=== PATIENT | male | born 1990 | race Caucasian/White ===

== ENCOUNTER 2019-11-02 18:40 | Emergency (ER) | payer OTHER ==
[2019-11-02 18:54] VITALS: TEMP 98.6; BMI 57.7
[2019-11-02] MEDS ORDERED: ALBUTEROL SO4 2.5/IPRATROPIUM 0.5 INH SOL 3 ML VIAL.NEB. NEB ONE ×3 (20:45→23:09)
[2019-11-02] MEDS ORDERED: DEXAMETHASONE LIQUID 0.5 MG/5 ML PO ONE (20:46)
[2019-11-02] MEDS ORDERED: LOSARTAN POTASSIUM 50 MG TABLET (FP) PO ONE (20:47)
[2019-11-02] MEDS ORDERED: DEXAMETHASONE SOD PHOSPHATE 10 MG/1 ML VIAL ONE (21:51)
[2019-11-02] MEDS ORDERED: LOSARTAN POTASSIUM 50 MG TABLET (FP) ONE (22:05)
--- NOTE | 2019-11-02 23:02 | PDOC ---
History of Present Illness - General Chief Complaint: Shortness of Breath Stated Complaint: FLU SYMPTOMS Time Seen by Provider: 11/02/19 20:36 History Source: Patient Exam Limitations: No Limitations - History of Present Illness Initial Comments: 11/02/19 23:00 29-year-old male with history of hypertension, asthma presents complaining of 5 weeks of dry cough with subjective fever intermittent shortness of breath. Completed antibiotics 7 days ago however does not recall name of antibiotic. Had loose stools yesterday. Missed losartan dose today. Denies chest pain, nausea, vomiting, recent travel, recent sick contacts, rash, urinary complaints or any other symptoms. ROS: GENERAL/CONSTITUTIONAL: Subjective fever, denies chills, weakness, dizziness HEAD, EYES, EARS, NOSE AND THROAT: No changes in vision, No ear pain or discharge, No sore throat CARDIOVASCULAR: No chest pain RESPIRATORY: Cough, intermittent shortness of breath GASTROINTESTINAL: No pain, nausea, vomiting, diarrhea or constipation GENITOURINARY: No dysuria MUSCULOSKELETAL: No neck or back pain SKIN: No rash NEUROLOGIC: No headache, vertigo, loss of consciousness, or loss of sensation PE: GENERAL: well-appearing, NAD, obese HEAD: NCAT EYES: Pupils equal, round and reactive to light, sclera anicteric, conjunctiva clear ENT: Normal bilateral ear canals, normal bilateral TMs, pharynx: no erythema, no exudate, uvula midline NECK: supple, no lymphadenopathy CHEST: nontender RESP: clear, wheezing throughout lung arizmendi CARDIO: rrr, no m/g/r ABD: +BS, soft, nontender, non distended BACK: no midline spinal ttp, no CVAT EXTREMITIES: Normal range of motion, no edema NEUROLOGICAL: Normal speech, normal gait SKIN: Warm, Dry 11/02/19 23:18 Is this a multiple visit Asthma Patient?: No Past History - Past Medical History Allergies/Adverse Reactions: Allergies Allergy/AdvReac Type Severity Reaction Status Date / Time No Known Allergies Allergy Verified 11/02/19 18:50 Home Medications: Ambulatory Orders Losartan Potassium 100 mg PO DAILY 11/02/19 Azithromycin [Zithromax Tri-Dung (3 DAYS) -] 500 mg PO DAILY #3 tablet 11/03/19 Prednisone [Prednisone 50 MG TABLETS] 50 mg PO ONCE 3 Days #3 tablet 11/03/19 COPD: No - Psycho Social/Smoking Cessation Hx Smoking History: Never smoked *Physical Exam - Vital Signs Last Vital Signs Temp Pulse Resp BP Pulse Ox 98.6 F 108 H 22 H 170/111 H 98 11/02/19 18:51 11/02/19 18:51 11/02/19 18:51 11/02/19 18:51 11/02/19 18:51 ED Treatment Course - RADIOLOGY Radiology Studies Ordered: Category Date Time Status CHEST PA & LAT [RAD] Stat Radiology 11/02/19 20:44 Taken - Medications Given in the ED: ED Medications Discontinued Medications Generic Name Dose Route Start Last Admin Trade Name Khanh PRN Reason Stop Dose Admin Albuterol/Ipratropium 1 amp 11/02/19 20:45 11/02/19 21:55 Duoneb - NEB 11/02/19 20:46 1 amp ONCE ONE Administration Dexamethasone 10 mg 11/02/19 20:46 11/02/19 21:55 Decadron Liquid - PO 11/02/19 20:47 10 ml ONCE ONE Administration Losartan Potassium 100 mg 11/02/19 20:47 11/02/19 22:07 Cozaar - PO 11/02/19 20:48 100 mg ONCE ONE Administration Medical Decision Making - Medical Decision Making 11/02/19 23:20 29-year-old male with history of asthma and hypertension complaining of 5 weeks of dry cough, worsening at night. Duo nebs Decadron Chest x-ray Losartan 100 mg x 1 dose Reassess 11/03/19 01:01 Patient feels better after nebs, Decadron and acetaminophen Clear lungs on auscultation repeat BP 157/91, 02 sat 97% Given history of asthma and continuous cough will treat with azithromycin 500 mg for 3 days and prednisone 50 mg daily for 3 days Follow-up with your doctor within 1 to 2 days Return to ED if chest pain, shortness of breath or any worsening symptom 11/03/19 01:04 Discharge - Discharge Information Problems reviewed: Yes Clinical Impression/Diagnosis: Cough Condition: Stable Disposition: HOME - Admission No - Additional Discharge Information Prescriptions: Azithromycin [Zithromax Tri-Dung (3 DAYS) -] 500 mg PO DAILY #3 tablet Prednisone [Prednisone 50 MG TABLETS] 50 mg PO ONCE 3 Days #3 tablet - Follow up/Referral Referrals: Genaro Marte MD [Primary Care Provider] - - Patient Discharge Instructions Additional Instructions: Take azithromycin and prednisone as directed Return to ED if chest pain, shortness of breath or any worsening symptom Follow-up with your doctor within 1 to 2 days - Post Discharge Activity
[2019-11-02] MEDS ORDERED: ACETAMINOPHEN 500 MG TABLET (FP) PO ONE (23:15)
[2019-11-03] MEDS ORDERED: ACETAMINOPHEN 325 MG TABLET (FP) ONE (00:05)
[2019-11-03] MEDS ORDERED: ALBUTEROL SO4 2.5/IPRATROPIUM 0.5 INH SOL 3 ML VIAL.NEB. NEB ONE (00:05)
[2019-11-03 04:29] VITALS: BP 153/94; PULSE 94
--- NOTE | 2019-11-03 15:10 | EKG ---
Test Reason : Blood Pressure : / mmHG Vent. Rate : 103 BPM Atrial Rate : 103 BPM P-R Int : 140 ms QRS Dur : 100 ms QT Int : 340 ms P-R-T Axes : 050 055 034 degrees QTc Int : 445 ms SINUS TACHYCARDIA POSSIBLE LEFT ATRIAL ENLARGEMENT NONSPECIFIC INTRAVENTRICULAR CONDUCTION DEFECT NO PREVIOUS ECGS AVAILABLE Confirmed by LY QUIROZ MD ([id number]) on 11/03/2019 3:10:32 PM Referred By: Confirmed By:LY QUIROZ MD
== END 2019-11-03 02:07 | disposition home or self-care (01) ==
LOC: JER 18:40
PROC: 3E0F7GC Introduction of Other Therapeutic Substance into Respiratory Tract, Via Natural or Artificial Opening (ICD-10-PCS; principal; 2019-11-02)
PROC: 3E0F7GC Introduction of Other Therapeutic Substance into Respiratory Tract, Via Natural or Artificial Opening (ICD-10-PCS; 2019-11-02)
DX: J45.909 Unspecified asthma, uncomplicated (principal); R05 Cough; I10 Essential (primary) hypertension
CPT/HCPCS: 71046-TC-FY; 93005; 93010; 99284-25

== ENCOUNTER 2020-01-09 12:28 | Inpatient (IN) | payer OTHER ==
[2020-01-09 12:37] VITALS: BMI 58.7
[2020-01-09] MEDS ORDERED: ACETAMINOPHEN 1000 MG/100 ML VIAL (NON FORMULARY) IVPB ONE (12:37)
--- NOTE | 2020-01-09 12:38 | PDOC ---
History of Present Illness - General Chief Complaint: Shortness of Breath Stated Complaint: DIFFICULTY BREATHING Time Seen by Provider: 01/09/20 12:34 - History of Present Illness Initial Comments: HPI: 01/09/20 12:37 29 yo M PMH HTN, asthma, morbid obesity, presenting with respiratory distress. Patient seen by Dr. Genaro Marte, Dr. Connors called ER to inform us that the patient was en route. Patient is known COVID-19 positive. Patient states that his breathing has gotten acutely worse over the past day, and also complains of worsening bilateral leg swelling. Patient did take 500mg acetaminophen about 3 hours before ER arrival. Endorses chest pain 2/2 coughing, SOB, [place]. [place]: [phone] ROS: GENERAL/CONSTITUTIONAL: endorses fever and chills. Denies generalized weakness, loss of appetite, weight change HEAD, EYES, EARS, NOSE AND THROAT: denies rhinorrhea, nasal congestion, throat pain, throat swelling NEUROLOGIC: denies headache, focal weakness, dizziness, seizure, mental status changes CARDIOVASCULAR: endorses chest pain 2/2 cough. Denies syncope, palpitations, irregular heart rate, lightheadedness RESPIRATORY: endorses cough, shortness of breath, and dyspnea with exertion. Denies stridor, hemoptysis GASTROINTESTINAL: denies abdominal pain, nausea, vomiting, diarrhea, constipation GENITOURINARY: denies dysuria, frequency, urgency, hesitancy, hematuria, flank pain MUSCULOSKELETAL: endorses myalgia. Denies arthralgia, joint swelling, back pain, neck pain SKIN: denies rash, itching, pallor HEMATOLOGIC/IMMUNOLOGIC: denies easy bleeding, easy bruising, lymphadenopathy, frequent infections ENDOCRINE: denies unexplained weight gain, unexplained weight loss, heat intolerance, cold intolerance PSYCHIATRIC: denies anxiety, depression, suicidal or homicidal ideation, hallucinations PE: Gen: sweaty, appears uncomfortable Neuro: AAOX4, CN II-XII grossly intact HEENT: atraumatic, normocephalic, dry mucous membranes Neck: trachea midline, supple CV: tachycardic to 130s, regular rhythm, no murmurs, rubs, or gallops Pulm: mild diffuse expiratory wheezes, satting 96% on 15L NRB Abd: soft, obese, non-distended, non-tender MSK: full ROM, intact pulses Extr: no edema, no deformities Skin: warm, dry MDM: Concern for worsening COVID. - COVID order set - EKG, CXR - Ofirmev - admit 01/09/20 13:13 CXR with significant developing bilateral infiltrates. Will give ceftriaxone and azithromycin, patient will be admitted for suspected COVID-19 and hypoxia. 01/09/20 14:14 ABG wnl. 01/09/20 14:50 D-dimer 33k, will give 180 mg Lovenox. Trop 0.48, likely 2/2 COVID-19. Inflammatory markers elevated. Patient admitted for COVID-19. Past History - Past Medical History Allergies/Adverse Reactions: Allergies Allergy/AdvReac Type Severity Reaction Status Date / Time No Known Allergies Allergy Verified 12/28/19 10:59 Home Medications: Ambulatory Orders Albuterol Sulfate Inhaler - [Ventolin HFA Inhaler -] 2 inh PO Q4H PRN #1 inh 11/03/16 Albuterol 2.5/Ipratropium 0.5 [Duoneb -] 1 amp NEB Q6H PRN #1 vial 12/16/19 Albuterol Sulfate Inhaler - [Ventolin HFA Inhaler -] 2 puff IH Q4H PRN #1 inhaler 01/02/20 Zinc Sulfate [Orazinc -] 220 mg PO DAILY #30 capsule 01/02/20 Asthma: Yes COPD: (sleep apnea) Diabetes: No (pre-diabetic) HTN: Yes Psychiatric Problems: Yes (Anxiety, Depression) - Psycho Social/Smoking Cessation Hx Smoking History: Never smoked Have you smoked in the past 12 months: No Information on smoking cessation initiated: No Hx Alcohol Use: No Drug/Substance Use Hx: No Substance Use Type: None Hx Substance Use Treatment: No *Physical Exam - Vital Signs Last Vital Signs Temp Pulse Resp BP Pulse Ox 99 F 126 H 36 H 131/77 80 L 01/09/20 12:34 01/09/20 12:34 01/09/20 12:34 01/09/20 12:34 01/09/20 12:34 ED Treatment Course - LABORATORY CBC & Chemistry Diagram: 01/10/20 07:10 01/10/20 07:10 - RADIOLOGY Radiology Studies Ordered: Category Date Time Status CHEST X-RAY PORTABLE* [RAD] Stat Radiology 01/09/20 12:35 Ordered Discharge - Discharge Information Problems reviewed: Yes Clinical Impression/Diagnosis: Suspected COVID-19 virus infection, Hypoxia - Follow up/Referral - Patient Discharge Instructions - Post Discharge Activity
[2020-01-09] MEDS ORDERED: methylPREDNISolone NA SUCC 125 MG/2 ML VIAL IVPB ONE (12:39)
--- NOTE | 2020-01-09 12:51 | PDOC ---
Attending Attestation - Resident Resident Name: José Manuel Chen - ED Attending Attestation I have performed the following: I have examined & evaluated the patient, The case was reviewed & discussed with the resident, I agree w/resident's findings & plan, Exceptions are as noted - HPI HPI: 01/09/20 12:40 29M with h/o HTN, asthma, morbid obesity, recent admission for asthma flare 2/2 confirmed COVID infection, presenting to ED with worsening SOB. Pt reports that over the past few days, he has been getting more short of breath. He used his albuterol MDI with no relief. Pt also notes that he has been having worsening swelling of both lower extremities. This was reported on his prior admission but acutely worsened last night. Pt denies F/C. - Physicial Exam PE: 01/09/20 12:45 GENERAL: Awake, alert, and fully oriented, in moderate respiratory distress. HEAD: No signs of trauma EYES: PERRLA, EOMI, sclera anicteric, conjunctiva clear ENT: Auricles normal inspection, hearing grossly normal, nares patent, oropharynx clear without exudates. Moist mucosa NECK: Nontender, no stepoffs, Normal ROM, supple, no lymphadenopathy, JVD, or masses LUNGS: + expiratory wheezing HEART: Regular rate and rhythm, normal S1 and S2, no murmurs, rubs or gallops ABDOMEN: Soft, nontender, normoactive bowel sounds. No guarding, no rebound. No masses EXTREMITIES: Normal range of motion, no edema. No clubbing or cyanosis. No cords, erythema, or tenderness NEUROLOGICAL: Cranial nerves II through XII intact. 5/5 strength and sensation in all extremities, Normal speech, normal gait, normal cerebellar function SKIN: Warm, Dry, normal turgor, no rashes or lesions noted. - Critical Care Time Total Critical Care Time: 60 Critical Care Statement: The care of this patient involved high complexity decision making to prevent further life threatening deterioration of the patient's condition and/or to evaluate & treat vital organ system(s) failure or risk of failure. - Medical Decision Making 01/09/20 12:51 29 M with confirmed COVID, presenting with worsening SOB. Pt hypoxic to 70s on RA, 90s on NRB. Likely asthma flare vs COVID PNA. - Labs - CXR - ALbuterol MDI, steroids 01/09/20 13:06 CXR with bilateral patchy infiltrates, suspect COVID PNA. Discharge - Discharge Information Problems reviewed: Yes Clinical Impression/Diagnosis: Suspected COVID-19 virus infection, Hypoxia - Follow up/Referral - Patient Discharge Instructions - Post Discharge Activity
[2020-01-09] MEDS ORDERED: ACETAMINOPHEN INJECTION 100 ML IVPB ONE (13:19)
[2020-01-09] MEDS ORDERED: methylPREDNISolone NA SUCC 125 MG/2 ML VIAL ONE (13:19)
[2020-01-09 13:24] LABS: BASO % 0.4 % (0-2.0); EOS % 1.2 % (0-4.5); HEMATOCRIT 38.2 % (35.4-49); HEMOGLOBIN 12.7 GM/dL (11.7-16.9); LYMPH % 12.6 % (8-40); MCHC 33.1 g/dl (32.0-35.9); MEAN CELL VOLUME 81.6 fl (80-96); MEAN PLT VOLUME 8.4 fl (7.5-11.1); MONO % 7.7 % (3.8-10.2); NEUT % 78.1 % (42.8-82.8); PLATELET COUNT 267 K/MM3 (134-434); RBC 4.68 M/mm3 (4.00-5.60); RDW 16.9 % (11.9-15.9); WHITE BLOOD COUNT 8.7 K/mm3 (4.0-10.0)
[2020-01-09 13:34] LABS: INR 1.35 (0.83-1.09)
[2020-01-09 13:37] LABS: ACTIVATED PTT 28.1 SECONDS (25.2-36.5)
[2020-01-09 13:43] LABS: ARTERIAL BLD GAS O2 SATURATION 96.2 % (95-98); ARTERIAL BLOOD GAS BASE EXCESS 1.9 mmol/L (-2-2); ARTERIAL BLOOD GAS PCO2 37.1 mmHg (35-45); ARTERIAL BLOOD GAS PO2 90.3 mmHg (80-100); ARTERIAL BLOOD GAS pH 7.45 (7.35-7.45)
[2020-01-09 14:19] LABS: ALBUMIN 2.5 g/dl (3.4-5.0); BILIRUBIN,DIRECT 0.2 mg/dL (0.0-0.2); BILIRUBIN,TOTAL 0.5 mg/dL (0.2-1); BLOOD UREA NITROGEN 9.4 mg/dL (7-18); CALCIUM 7.7 mg/dL (8.5-10.1); CREATININE 0.9 mg/dL (0.55-1.3); POTASSIUM 4.5 mmol/L (3.5-5.1); TOT PROT 6.9 g/dl (6.4-8.2)
[2020-01-09] MEDS ORDERED: ENOXAPARIN NA (PORCINE) 120 MG/0.8 ML DISP.SYRIN SQ SCH (15:00)
--- NOTE | 2020-01-09 15:17 | EKG ---
Test Reason : Blood Pressure : / mmHG Vent. Rate : 121 BPM Atrial Rate : 121 BPM P-R Int : 136 ms QRS Dur : 094 ms QT Int : 332 ms P-R-T Axes : 055 055 030 degrees QTc Int : 471 ms SINUS TACHYCARDIA POSSIBLE LEFT ATRIAL ENLARGEMENT BORDERLINE ECG WHEN COMPARED WITH ECG OF 31-DEC-2019 14:50, NO SIGNIFICANT CHANGE WAS FOUND Confirmed by MD DAVIS PENG ([id number]) on 01/09/2020 3:16:58 PM Referred By: Confirmed By:TATE DAVIS MD
[2020-01-09] MEDS ORDERED: ENOXAPARIN NA (PORCINE) 100 MG/1 ML DISP.SYRIN SQ ONE (15:36)
[2020-01-09] MEDS ORDERED: ENOXAPARIN NA (PORCINE) 80 MG/0.8 ML DISP.SYRIN SQ ONE (15:36)
[2020-01-09] MEDS ORDERED: CEFTRIAXONE 1 GM in DEXTROSE 5%-WATER 100 ML IVPB ONE (19:25)
[2020-01-09] MEDS ORDERED: HYDROXYCHLOROQUINE SO4 200 MG TABLET (FP) PO ONE ×2 (19:30→20:04)
[2020-01-09] MEDS ORDERED: AZITHROMYCIN IVPB 500 MG/250 ML BAG IVPB ONE ×2 (19:45→20:05)
[2020-01-09] MEDS ORDERED: CEFTRIAXONE 1 GM/50 ML BAG ONE (20:04)
[2020-01-09] MEDS ORDERED: ASCORBIC ACID 500 MG TABLET (FP) ONE (22:31)
[2020-01-09] MEDS ORDERED: ZINC SULFATE 220 MG CAPSULE (FP) ONE (22:31)
[2020-01-09] MEDS: ASCORBIC ACID 1,000 MG TABLET PO SCH (22:56)
[2020-01-09] MEDS: ZINC SULFATE 220 MG CAPSULE (FP) PO SCH (22:56)
--- NOTE | 2020-01-10 00:53 | HP ---
Admitting History and Physical - Smoking History Smoking history: Never smoked Have you smoked in the past 12 months: No - Alcohol/Substance Use Hx Alcohol Use: No Home Medications - Allergies Allergies/Adverse Reactions: Allergies Allergy/AdvReac Type Severity Reaction Status Date / Time No Known Allergies Allergy Verified 12/28/19 10:59 - Home Medications Home Medications: Ambulatory Orders Albuterol Sulfate Inhaler - [Ventolin HFA Inhaler -] 2 inh PO Q4H PRN #1 inh 11/03/16 Albuterol 2.5/Ipratropium 0.5 [Duoneb -] 1 amp NEB Q6H PRN #1 vial 12/16/19 Albuterol Sulfate Inhaler - [Ventolin HFA Inhaler -] 2 puff IH Q4H PRN #1 inha ler 01/02/20 Zinc Sulfate [Orazinc -] 220 mg PO DAILY #30 capsule 01/02/20 Physical Examination Vital Signs: Vital Signs Temperature 97.4 F L 01/09/20 21:16 Pulse Rate 111 H 01/09/20 23:25 Respiratory Rate 25 H 01/09/20 23:25 Blood Pressure 148/78 01/09/20 23:25 O2 Sat by Pulse Oximetry (%) 96 01/09/20 23:25 Labs: CBC, BMP 01/09/20 13:00 01/09/20 13:00
[2020-01-10 07:33] LABS: BASO % 0.5 % (0-2.0); HEMATOCRIT 38.8 % (35.4-49); LYMPH % 10.9 % (8-40); MCH 27.3 pg (25.7-33.7); MCHC 33.4 g/dl (32.0-35.9); MEAN CELL VOLUME 81.9 fl (80-96); MEAN PLT VOLUME 8.5 fl (7.5-11.1); MONO % 5.4 % (3.8-10.2); NEUT % 83.2 % (42.8-82.8); PLATELET COUNT 282 K/MM3 (134-434); RBC 4.74 M/mm3 (4.00-5.60); RDW 16.2 % (11.9-15.9); WHITE BLOOD COUNT 7.1 K/mm3 (4.0-10.0)
--- NOTE | 2020-01-10 07:59 | CON.CARD ---
Consult Consult Specialty:: Cardiology - History of Present Illness History of Present Illness: 29M with h/o HTN, asthma, morbid obesity, recent admission for asthma flare 2/2 confirmed COVID infection, presenting to ED with worsening SOB. Pt reports that over the past few days, he has been getting more short of breath. He used his albuterol MDI with no relief. Pt also notes that he has been having worsening swelling of both lower extremities. This was reported on his prior admission but acutely worsened last night. Pt denies F/C. - Past Medical History Cardio/Vascular: Yes: HTN - Alcohol/Substance Use Hx Alcohol Use: No - Smoking History Smoking history: Never smoked Have you smoked in the past 12 months: No Home Medications - Allergies Allergies/Adverse Reactions: Allergies Allergy/AdvReac Type Severity Reaction Status Date / Time No Known Allergies Allergy Verified 12/28/19 10:59 - Home Medications Home Medications: Ambulatory Orders Albuterol Sulfate Inhaler - [Ventolin HFA Inhaler -] 2 inh PO Q4H PRN #1 inh 11/03/16 Albuterol 2.5/Ipratropium 0.5 [Duoneb -] 1 amp NEB Q6H PRN #1 vial 12/16/19 Albuterol Sulfate Inhaler - [Ventolin HFA Inhaler -] 2 puff IH Q4H PRN #1 inhaler 01/02/20 Zinc Sulfate [Orazinc -] 220 mg PO DAILY #30 capsule 01/02/20 Review of Systems - Review of Systems Constitutional: reports: No Symptoms Eyes: reports: No Symptoms HENT: reports: No Symptoms Neck: reports: No Symptoms Cardiovascular: reports: Edema Respiratory: reports: SOB, SOB on Exertion Gastrointestinal: reports: No Symptoms Genitourinary: reports: No Symptoms Breasts: reports: No Symptoms Reported Musculoskeletal: reports: No Symptoms Integumentary: reports: No Symptoms Neurological: reports: No Symptoms Endocrine: reports: No Symptoms Hematology/Lymphatic: reports: No Symptoms Psychiatric: reports: No Symptoms Vital Signs: Vital Signs Temperature 97.4 F L 01/09/20 21:16 Pulse Rate 90 01/10/20 06:00 Respiratory Rate 23 H 01/10/20 06:00 Blood Pressure 129/77 01/10/20 06:00 O2 Sat by Pulse Oximetry (%) 96 01/10/20 07:30 Constitutional: Yes: Well Nourished, No Distress, Calm Eyes: Yes: WNL, Conjunctiva Clear, EOM Intact HENT: Yes: WNL, Atraumatic, Normocephalic Neck: Yes: WNL, Supple, Trachea Midline Respiratory: Yes: WNL, Regular, CTA Bilaterally Gastrointestinal: Yes: WNL, Normal Bowel Sounds Renal/: Yes: WNL Cardiovascular: Yes: WNL, Regular Rate and Rhythm Musculoskeletal: Yes: WNL Extremities: Yes: WNL Integumentary: Yes: WNL Neurological: Yes: WNL, Alert, Oriented ...Motor Strength: WNL Psychiatric: Yes: WNL, Alert, Oriented - Other Data Labs, Other Data: INR, PTT INR 1.35 (0.83-1.09) H 01/09/20 13:00 Troponin, BNP 01/09/20 01/09/20 01/09/20 13:00 13:00 23:24 Troponin I 0.48 H 1.75 H* B-Natriuretic Peptide 113.5 Troponin, BNP 01/09/20 01/09/20 01/09/20 13:00 13:00 23:24 Troponin I 0.48 H 1.75 H* B-Natriuretic Peptide 113.5 Imaging - Results Chest X-ray: Image Reviewed (b infiltrates) EKG: Image Reviewed (s tachy rep abn NSR wnl QTC 469) Problem List - Problems (1) Asthma attack Code(s): J45.901 - UNSPECIFIED ASTHMA WITH (ACUTE) EXACERBATION (2) Asthma exacerbation Code(s): J45.901 - UNSPECIFIED ASTHMA WITH (ACUTE) EXACERBATION (3) Bronchitis Code(s): J40 - BRONCHITIS, NOT SPECIFIED ACUTE OR CHRONIC (4) COVID-19 Code(s): U07.1 - COVID POSITIVE (5) Cellulitis Code(s): L03.90 - CELLULITIS, UNSPECIFIED (6) Cough Code(s): R05 - COUGH (7) Diabetes Code(s): E11.9 - TYPE 2 DIABETES MELLITUS WITHOUT COMPLICATIONS (8) Fever Code(s): R50.9 - FEVER, UNSPECIFIED (9) HTN (hypertension) Code(s): I10 - ESSENTIAL (PRIMARY) HYPERTENSION (10) Morbid obesity Code(s): E66.01 - MORBID (SEVERE) OBESITY DUE TO EXCESS CALORIES (11) Morbid obesity Code(s): E66.01 - MORBID (SEVERE) OBESITY DUE TO EXCESS CALORIES (12) Otitis externa Code(s): H60.90 - UNSPECIFIED OTITIS EXTERNA, UNSPECIFIED EAR Qualifiers: Otitis externa type: unspecified type Chronicity: acute Laterality: right Qualified Code(s): H60.501 - Unspecified acute noninfective otitis externa, right ear (13) Pilonidal abscess Code(s): L05.01 - PILONIDAL CYST WITH ABSCESS (14) Suspected COVID-19 virus infection Code(s): R68.89 - OTHER GENERAL SYMPTOMS AND SIGNS (15) Swollen leg Code(s): M79.89 - OTHER SPECIFIED SOFT TISSUE DISORDERS (16) Tachycardia Code(s): R00.0 - TACHYCARDIA, UNSPECIFIED (17) Tooth pain Code(s): K08.8 - OTHER SPECIFIED DISORDERS OF TEETH AND SUPPOR * DO NOT USE * (18) URI (upper respiratory infection) Code(s): J06.9 - ACUTE UPPER RESPIRATORY INFECTION, UNSPECIFIED Qualifiers: URI type: unspecified viral URI Qualified Code(s): J06.9 - Acute upper respiratory infection, unspecified (19) Varicose veins Code(s): I86.8 - VARICOSE VEINS OF OTHER SPECIFIED SITES Assessment/Plan HTN, asthma, morbid obesity, recent admission for asthma flare 2/2 confirmed COVID infection, presenting to ED with worsening SOB. positive TNIs Plan; Agree with ASA Lovonox AC Azithromycin/Cefriaxone Cardiac w/u when stable and COVID pnemonitis resolves
[2020-01-10 08:24] LABS: ALBUMIN 2.6 g/dl (3.4-5.0); BILIRUBIN,TOTAL 0.6 mg/dL (0.2-1); BLOOD UREA NITROGEN 14.1 mg/dL (7-18); CALCIUM 8.7 mg/dL (8.5-10.1); CREATININE 0.8 mg/dL (0.55-1.3); POTASSIUM 4.7 mmol/L (3.5-5.1); TOT PROT 7.2 g/dl (6.4-8.2)
[2020-01-10] MEDS ORDERED: ENOXAPARIN NA (PORCINE) 100 MG/1 ML DISP.SYRIN SQ ONE ×2 (09:01→21:25)
[2020-01-10] MEDS ORDERED: ASPIRIN 81 MG CHEWABLE TABLETS ONE (09:01)
[2020-01-10] MEDS ORDERED: ZINC SULFATE 220 MG CAPSULE (FP) ONE ×2 (09:01→21:25)
[2020-01-10] MEDS ORDERED: ENOXAPARIN NA (PORCINE) 80 MG/0.8 ML DISP.SYRIN SQ ONE ×2 (09:02→21:25)
[2020-01-10] MEDS: ASPIRIN COATED 81 MG TABLET.EC PO SCH (09:15)
[2020-01-10] MEDS: ZINC SULFATE 220 MG CAPSULE (FP) PO SCH ×2 (09:15→21:42)
[2020-01-10] MEDS: ASCORBIC ACID 1,000 MG TABLET PO SCH ×2 (09:15→21:42)
[2020-01-10] MEDS: ENOXAPARIN NA (PORCINE) 60 MG/0.6 ML DISP.SYRIN SQ SCH ×2 (09:16→21:42)
--- NOTE | 2020-01-10 09:27 | EKG ---
Test Reason : Blood Pressure : / mmHG Vent. Rate : 099 BPM Atrial Rate : 099 BPM P-R Int : 152 ms QRS Dur : 104 ms QT Int : 374 ms P-R-T Axes : 047 036 018 degrees QTc Int : 479 ms NORMAL SINUS RHYTHM NORMAL ECG WHEN COMPARED WITH ECG OF 09-JAN-2020 12:47, NO SIGNIFICANT CHANGE WAS FOUND Confirmed by MD DAVIS PENG ([id number]) on 01/10/2020 9:27:30 AM Referred By: Confirmed By:TATE DAVIS MD
--- NOTE | 2020-01-10 09:27 | EKG ---
Test Reason : Blood Pressure : / mmHG Vent. Rate : 095 BPM Atrial Rate : 095 BPM P-R Int : 146 ms QRS Dur : 098 ms QT Int : 374 ms P-R-T Axes : 053 038 027 degrees QTc Int : 469 ms NORMAL SINUS RHYTHM NORMAL ECG WHEN COMPARED WITH ECG OF 09-JAN-2020 21:28, NO SIGNIFICANT CHANGE WAS FOUND Confirmed by MD DAVIS PENG ([id number]) on 01/10/2020 9:27:12 AM Referred By: Confirmed By:TATE DAVIS MD
--- NOTE | 2020-01-10 12:12 | CON.ID ---
Consult Consult Specialty:: infectious diseases - Alcohol/Substance Use Hx Alcohol Use: No - Smoking History Smoking history: Never smoked Have you smoked in the past 12 months: No Home Medications - Allergies Allergies/Adverse Reactions: Allergies Allergy/AdvReac Type Severity Reaction Status Date / Time No Known Allergies Allergy Verified 12/28/19 10:59 - Home Medications Home Medications: Ambulatory Orders RX: Albuterol Sulfate Inhaler - [Ventolin HFA Inhaler -] 2 inh PO Q4H PRN #1 inh 11/03/16 RX: Albuterol 2.5/Ipratropium 0.5 [Duoneb -] 1 amp NEB Q6H PRN #1 vial 12/16/19 RX: Albuterol Sulfate Inhaler - [Ventolin HFA Inhaler -] 2 puff IH Q4H PRN #1 inhaler 01/02/20 RX: Zinc Sulfate [Orazinc -] 220 mg PO DAILY #30 capsule 01/02/20 Physical Exam Vital Signs: Vital Signs Temperature 97.4 F L 01/09/20 21:16 Pulse Rate 85 01/10/20 11:48 Respiratory Rate 22 H 01/10/20 11:48 Blood Pressure 124/83 01/10/20 11:48 O2 Sat by Pulse Oximetry (%) 99 01/10/20 11:48 Labs: CBC, BMP 01/10/20 07:10 01/10/20 07:10
[2020-01-10] MEDS ORDERED: AZITHROMYCIN IVPB 500 MG/250 ML BAG IVPB ONE (12:54)
[2020-01-10] MEDS ORDERED: CEFTRIAXONE 1 GM/50 ML BAG ONE (12:54)
[2020-01-10] MEDS: CEFTRIAXONE 1 GM in DEXTROSE 5%-WATER - 50 ML IVPB SCH (13:01)
[2020-01-10] MEDS: AZITHROMYCIN IVPB 500 MG/250 ML BAG IVPB SCH (13:29)
[2020-01-10] MEDS ORDERED: ASCORBIC ACID 500 MG TABLET (FP) ONE (21:24)
[2020-01-11 08:31] LABS: BASO % 0.2 % (0-2.0); EOS % 0.1 % (0-4.5); HEMATOCRIT 36.1 % (35.4-49); HEMOGLOBIN 11.8 GM/dL (11.7-16.9); LYMPH % 14.9 % (8-40); MCH 26.9 pg (25.7-33.7); MCHC 32.6 g/dl (32.0-35.9); MEAN CELL VOLUME 82.4 fl (80-96); MEAN PLT VOLUME 8.8 fl (7.5-11.1); MONO % 6.1 % (3.8-10.2); NEUT % 78.7 % (42.8-82.8); PLATELET COUNT 333 K/MM3 (134-434); RBC 4.39 M/mm3 (4.00-5.60); RDW 16.3 % (11.9-15.9)
[2020-01-11 09:20] LABS: ALBUMIN 2.3 g/dl (3.4-5.0); BILIRUBIN,TOTAL 0.3 mg/dL (0.2-1); BLOOD UREA NITROGEN 20.4 mg/dL (7-18); CALCIUM 8.2 mg/dL (8.5-10.1); CREATININE 0.8 mg/dL (0.55-1.3)
[2020-01-11] MEDS ORDERED: PT OWN MED DRAWER 7, Y5N ONE (09:21)
[2020-01-11] MEDS ORDERED: cefTRIAXone SODIUM 1 GM VIAL ONE (09:21)
[2020-01-11] MEDS ORDERED: DEXTROSE 5%-WATER - 50 ML IVPB ONE (09:22)
[2020-01-11] MEDS: ALBUTEROL SO4 HFA INHALER IH PRN (09:48)
[2020-01-11] MEDS: ZINC SULFATE 220 MG CAPSULE (FP) PO SCH ×2 (09:48→21:18)
[2020-01-11] MEDS: ASCORBIC ACID 1,000 MG TABLET PO SCH ×2 (09:48→21:18)
[2020-01-11] MEDS: CEFTRIAXONE 1 GM in DEXTROSE 5%-WATER - 50 ML IVPB SCH (09:48)
[2020-01-11] MEDS: ENOXAPARIN NA (PORCINE) 60 MG/0.6 ML DISP.SYRIN SQ SCH ×2 (09:48→21:18)
[2020-01-11] MEDS: ASPIRIN COATED 81 MG TABLET.EC PO SCH (09:48)
[2020-01-11 10:45] LABS: ANISOCYTOSIS 0; MACROCYTOSIS 0; PLATELET ESTIMATE NORMAL
--- NOTE | 2020-01-11 10:50 | PN ---
Progress Note, Physician History of Present Illness: still requiring face mask says breathing is hard - Current Medication List Current Medications: Active Medications Albuterol Sulfate (Ventolin Hfa Inhaler -) 2 puff IH Q4H PRN PRN Reason: SHORT OF BREATH/WHEEZING Last Admin: 01/11/20 09:48 Dose: 2 puff Documented by: Ascorbic Acid (Vitamin C) 1,000 mg PO BID [facility] Last Admin: 01/11/20 09:48 Dose: 1,000 mg Documented by: Aspirin (Ecotrin -) 81 mg PO DAILY [facility] Last Admin: 01/11/20 09:48 Dose: 81 mg Documented by: Enoxaparin Sodium (Lovenox -) 180 mg SQ BID [facility] Last Admin: 01/11/20 09:48 Dose: 180 mg Documented by: Ceftriaxone Sodium 1 gm/ (Dextrose) 50 mls @ 100 mls/hr IVPB DAILY [facility]; Protocol Last Admin: 01/11/20 09:48 Dose: 100 mls/hr Documented by: Zinc Sulfate (Orazinc -) 220 mg PO BID [facility] Last Admin: 01/11/20 09:48 Dose: 220 mg Documented by: - Objective Vital Signs: Vital Signs Temperature 97.8 F 01/11/20 08:48 Pulse Rate 92 H 01/11/20 08:48 Respiratory Rate 18 01/11/20 08:48 Blood Pressure 140/70 01/11/20 08:48 O2 Sat by Pulse Oximetry (%) 100 01/11/20 03:58 Constitutional: Yes: Calm, Moderate Distress, Obese Cardiovascular: Yes: S1, S2 Respiratory: Yes: Poor Air Entry, Other (on nrb) Gastrointestinal: Yes: Normal Bowel Sounds, Soft Musculoskeletal: Yes: WNL Extremities: Yes: WNL Neurological: Yes: Alert, Oriented Psychiatric: Yes: Alert, Oriented Labs: CBC, BMP 01/11/20 06:28 01/11/20 06:28 INR, PTT INR 1.35 (0.83-1.09) H 01/09/20 13:00 Assessment/Plan Problem List - Problems (1) Asthma attack Code(s): J45.901 - UNSPECIFIED ASTHMA WITH (ACUTE) EXACERBATION (2) Asthma exacerbation Code(s): J45.901 - UNSPECIFIED ASTHMA WITH (ACUTE) EXACERBATION (3) Bronchitis Code(s): J40 - BRONCHITIS, NOT SPECIFIED ACUTE OR CHRONIC (4) COVID-19 Code(s): U07.1 - COVID POSITIVE (6) Cough Code(s): R05 - COUGH (7) Diabetes Code(s): E11.9 - TYPE 2 DIABETES MELLITUS WITHOUT COMPLICATIONS (8) Fever Code(s): R50.9 - FEVER, UNSPECIFIED (9) HTN (hypertension) Code(s): I10 - ESSENTIAL (PRIMARY) HYPERTENSION (10) Morbid obesity Code(s): E66.01 - MORBID (SEVERE) OBESITY DUE TO EXCESS CALORIES (11) Morbid obesity Code(s): E66.01 - MORBID (SEVERE) OBESITY DUE TO EXCESS CALORIES (13) Pilonidal abscess Code(s): L05.01 - PILONIDAL CYST WITH ABSCESS plan consider steroids will stop plaquenil and zithro continue ceftriaxone might need cpap pul to see rest as per the team
[2020-01-11] MEDS: HYDROXYCHLOROQUINE SO4 200 MG TABLET (FP) PO SCH (10:57)
[2020-01-11] MEDS: AZITHROMYCIN IVPB 500 MG/250 ML BAG IVPB SCH (10:57)
--- NOTE | 2020-01-11 13:11 | CON.PULM ---
Consult Consult Specialty:: PULMONARY Referred by:: ALLEN Reason for Consultation:: SOB - History of Present Illness Chief Complaint: SOB History of Present Illness: 29 yo M HTN, asthma, morbid obesity, presenting with respiratory distress. Patient was seen by Dr. Genaro Marte. Patient is known COVID-19 positive. Patient states that his breathing has gotten acutely worse over the past day, and also complains of worsening bilateral leg swelling. 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 No: AFIB Pulmonary: Yes: Sleep Apnea Gastrointestinal: No: Ascites Hepatobiliary: No: Cirrhosis Renal/: No: Renal Failure Heme/Onc: No: Anemia Psych: No: Addictions - Alcohol/Substance Use Hx Alcohol Use: No History of Substance Use: reports: None - Smoking History Smoking history: Never smoked Have you smoked in the past 12 months: No - Social History ADL: Independent History of Recent Travel: No Home Medications - Allergies Allergies/Adverse Reactions: Allergies Allergy/AdvReac Type Severity Reaction Status Date / Time No Known Allergies Allergy Verified 12/28/19 10:59 - Home Medications Home Medications: Ambulatory Orders Albuterol Sulfate Inhaler - [Ventolin HFA Inhaler -] 2 inh PO Q4H PRN #1 inh 11/03/16 Albuterol 2.5/Ipratropium 0.5 [Duoneb -] 1 amp NEB Q6H PRN #1 vial 12/16/19 Albuterol Sulfate Inhaler - [Ventolin HFA Inhaler -] 2 puff IH Q4H PRN #1 inhaler 01/02/20 Zinc Sulfate [Orazinc -] 220 mg PO DAILY #30 capsule 01/02/20 Family Medical History Family History: Unremarkable Review of Systems - Review of Systems Constitutional: denies: Fever Eyes: denies: Blurred Vision HENT: denies: Ear Discharge Neck: denies: Lumps Cardiovascular: reports: Edema, Shortness of Breath Respiratory: reports: Exercise Intolerance, SOB, SOB on Exertion. denies: Cough, Hemoptysis, Wheezing Gastrointestinal: denies: Abdominal Pain Genitourinary: denies: Burning Physical Exam Vital Sings: Vital Signs Temperature 97.8 F 01/11/20 08:48 Pulse Rate 92 H 01/11/20 08:48 Respiratory Rate 18 01/11/20 08:48 Blood Pressure 140/70 01/11/20 08:48 O2 Sat by Pulse Oximetry (%) 100 01/11/20 10:00 Constitutional: Yes: Calm Eyes: Yes: EOM Intact HENT: Yes: Normocephalic Neck: Yes: Trachea Midline Cardiovascular: Yes: Regular Rate and Rhythm Respiratory: Yes: Diminished Gastrointestinal: Yes: Abdomen, Obese Edema: LLE: 1+, RLE: 1+ Neurological: Yes: Alert Labs: CBC, BMP 01/11/20 06:28 01/11/20 06:28 ABG Results ABG pH 7.45 (7.35-7.45) 01/09/20 13:00 ABG pCO2 at Pt Temp 37.1 mmHg (35-45) 01/09/20 13:00 ABG pO2 at Pt Temp 90.3 mmHg (80-100) 01/09/20 13:00 ABG HCO3 25.2 mmol/L (22-27) 01/09/20 13:00 ABG O2 Sat (Measured) 96.2 % (95-98) 01/09/20 13:00 ABG O2 Content 24.6 % vol 01/09/20 13:00 ABG Base Excess 1.9 mmol/L (-2-2) 01/09/20 13:00 Imaging - Results Chest X-ray: Report Reviewed, Image Reviewed Ultrasound: Report Reviewed EKG: Report Reviewed, Image Reviewed Problem List - Problems (1) Sleep apnea Code(s): G47.30 - SLEEP APNEA, UNSPECIFIED (2) Hypoxia Code(s): R09.02 - HYPOXEMIA (3) Suspected COVID-19 virus infection Code(s): R68.89 - OTHER GENERAL SYMPTOMS AND SIGNS (4) Asthma exacerbation Code(s): J45.901 - UNSPECIFIED ASTHMA WITH (ACUTE) EXACERBATION (5) Diabetes Code(s): E11.9 - TYPE 2 DIABETES MELLITUS WITHOUT COMPLICATIONS (6) HTN (hypertension) Code(s): I10 - ESSENTIAL (PRIMARY) HYPERTENSION (7) Morbid obesity Code(s): E66.01 - MORBID (SEVERE) OBESITY DUE TO EXCESS CALORIES Assessment/Plan DISCHARGED ON THE December/RETURNS ON THE WITH SOB AFEBRILE/100 SPO2 ON NRB WEIGHS 398 LBS/STATES HE USED TO HAVE SLEEP APNEA? COMPLETED TREATMENT FOR HIS COVID POSITIVE PNEUMONIA 10 DAYS AGO. AGREE WITH EMPIRIC ANTIBIOTICS/O2 SUPPLEMENTATION CONSIDER PAP HS/PRN WILL NEED PSG OUTPATIENT WILL FOLLOW Magalie ORTIZ MD
[2020-01-11] MEDS: ACETAMINOPHEN 325 MG TABLET (FP) PO PRN (13:58)
--- NOTE | 2020-01-11 15:49 | PN ---
Progress Note, Physician History of Present Illness: 29M with h/o HTN, asthma, morbid obesity (weighed over 400 lbs; lost 200 lbs in a year while eating "baby food" and anticipating gastric bypass surgery, which did not occur; became depressed, and regained weight to present 398 lbs);depression; recent admission for asthma flareup 2/2, confirmed COVID infection, presenting to ED with worsening SOB. Pt reports that over the past few days, he has been getting more short of breath. He used his albuterol MDI with no relief. Pt also notes that he has been having worsening swelling of both lower extremities. This was reported on his prior admission but acutely worsened last night. Pt denies F/C. - Current Medication List Current Medications: Active Medications Acetaminophen (Tylenol -) 650 mg PO Q6H PRN PRN Reason: FEVER Albuterol Sulfate (Ventolin Hfa Inhaler -) 2 puff IH Q4H PRN PRN Reason: SHORT OF BREATH/WHEEZING Last Admin: 01/11/20 09:48 Dose: 2 puff Documented by: Ascorbic Acid (Vitamin C) 1,000 mg PO BID [facility] Last Admin: 01/11/20 09:48 Dose: 1,000 mg Documented by: Aspirin (Ecotrin -) 81 mg PO DAILY [facility] Last Admin: 01/11/20 09:48 Dose: 81 mg Documented by: Enoxaparin Sodium (Lovenox -) 180 mg SQ BID [facility] Last Admin: 01/11/20 09:48 Dose: 180 mg Documented by: Ceftriaxone Sodium 1 gm/ (Dextrose) 50 mls @ 100 mls/hr IVPB DAILY [facility]; Protocol Last Admin: 01/11/20 09:48 Dose: 100 mls/hr Documented by: Zinc Sulfate (Orazinc -) 220 mg PO BID [facility] Last Admin: 01/11/20 09:48 Dose: 220 mg Documented by: - Objective Vital Signs: Vital Signs Temperature 97.9 F 01/11/20 12:00 Pulse Rate 89 01/11/20 12:00 Respiratory Rate 18 01/11/20 12:00 Blood Pressure 134/64 01/11/20 12:00 O2 Sat by Pulse Oximetry (%) 100 01/11/20 10:00 Constitutional: Yes: Anxious, Obese Eyes: Yes: WNL HENT: Yes: WNL Neck: Yes: WNL Cardiovascular: Yes: S1, S2 Respiratory: Yes: Diminished, SOB, Tachypnea Gastrointestinal: Yes: Abdomen, Obese ...Rectal Exam: Yes: Deferred Genitourinary: No: Anuria Musculoskeletal: Yes: Muscle Weakness Extremities: Yes: Cool Edema: No Peripheral Pulses WNL: Yes Integumentary: Yes: WNL Neurological: Yes: WNL Psychiatric: Yes: Other Labs: CBC, BMP 01/11/20 06:28 01/11/20 06:28 INR, PTT INR 1.35 (0.83-1.09) H 01/09/20 13:00 Abnormal Lab Results 01/13/20 01/13/20 01/13/20 06:20 06:20 06:20 RDW 16.1 H Monocytes % (Manual) 0 L D Metamyelocytes 3 H D D-Dimer Anion Gap 6 L Calcium 8.4 L Ferritin 718.9 H AST 63 H ALT 87 H C-Reactive Protein 5.9 H Total Protein 6.0 L Albumin 2.4 L 01/13/20 06:20 RDW Monocytes % (Manual) Metamyelocytes D-Dimer 4631 H Anion Gap Calcium Ferritin AST ALT C-Reactive Protein Total Protein Albumin - ....Imaging Chest X-ray: Image Reviewed EKG: Image Reviewed Assessment/Plan HTN, asthma, morbid obesity, recent admission for asthma flare 2/2 confirmed COVID infection, presenting to ED with worsening SOB. positive TNIs Plan; Agree with ASA Lovonox AC Azithromycin/Cefriaxone Cardiac w/u (ECHO; stress MIBI) when stable and COVID pnemonitis resolves start statin (elevated lipid profile). F/u BP serially. Avoid beta blockers (hx asthma); caution with ACEI or ARB (elevated potassium); consider amlodipine.
--- NOTE | 2020-01-11 23:32 | PN ---
Progress Note, Physician - Current Medication List Current Medications: Active Medications Acetaminophen (Tylenol -) 650 mg PO Q6H PRN PRN Reason: FEVER Last Admin: 01/11/20 13:58 Dose: 650 mg Documented by: Albuterol Sulfate (Ventolin Hfa Inhaler -) 2 puff IH Q4H PRN PRN Reason: SHORT OF BREATH/WHEEZING Last Admin: 01/11/20 09:48 Dose: 2 puff Documented by: Ascorbic Acid (Vitamin C) 1,000 mg PO BID [facility] Last Admin: 01/11/20 21:18 Dose: 1,000 mg Documented by: Aspirin (Ecotrin -) 81 mg PO DAILY [facility] Last Admin: 01/11/20 09:48 Dose: 81 mg Documented by: Enoxaparin Sodium (Lovenox -) 180 mg SQ BID [facility] Last Admin: 01/11/20 21:18 Dose: 180 mg Documented by: Ceftriaxone Sodium 1 gm/ (Dextrose) 50 mls @ 100 mls/hr IVPB DAILY [facility]; Protocol Last Admin: 01/11/20 09:48 Dose: 100 mls/hr Documented by: Zinc Sulfate (Orazinc -) 220 mg PO BID [facility] Last Admin: 01/11/20 21:18 Dose: 220 mg Documented by: - Objective Vital Signs: Vital Signs Temperature 97.7 F 01/11/20 18:00 Pulse Rate 91 H 01/11/20 18:00 Respiratory Rate 18 01/11/20 18:00 Blood Pressure 135/77 01/11/20 18:00 O2 Sat by Pulse Oximetry (%) 100 01/11/20 10:00 Labs: CBC, BMP 01/11/20 06:28 01/11/20 06:28 INR, PTT INR 1.35 (0.83-1.09) H 01/09/20 13:00
[2020-01-12] MEDS ORDERED: DEXTROSE 5%-WATER - 50 ML IVPB ONE ×2 (00:17→08:48)
[2020-01-12] MEDS ORDERED: cefTRIAXone SODIUM 1 GM VIAL ONE ×2 (00:17→08:48)
[2020-01-12] MEDS: CEFTRIAXONE 1 GM in DEXTROSE 5%-WATER - 50 ML IVPB SCH ×2 (01:15→09:22)
[2020-01-12] MEDS: ACETAMINOPHEN 325 MG TABLET (FP) PO PRN (03:29)
[2020-01-12] MEDS: ZINC SULFATE 220 MG CAPSULE (FP) PO SCH ×2 (09:22→21:19)
[2020-01-12] MEDS: ASPIRIN COATED 81 MG TABLET.EC PO SCH (09:22)
[2020-01-12] MEDS: ASCORBIC ACID 1,000 MG TABLET PO SCH ×2 (09:22→21:19)
[2020-01-12] MEDS: ENOXAPARIN NA (PORCINE) 60 MG/0.6 ML DISP.SYRIN SQ SCH ×2 (09:22→21:18)
--- NOTE | 2020-01-12 10:15 | PN ---
Progress Note, Physician History of Present Illness: improving was sating well on non rebreather now switched to nasal canula - Current Medication List Current Medications: Active Medications Acetaminophen (Tylenol -) 650 mg PO Q6H PRN PRN Reason: FEVER Last Admin: 01/12/20 03:29 Dose: 650 mg Documented by: Albuterol Sulfate (Ventolin Hfa Inhaler -) 2 puff IH Q4H PRN PRN Reason: SHORT OF BREATH/WHEEZING Last Admin: 01/11/20 09:48 Dose: 2 puff Documented by: Ascorbic Acid (Vitamin C) 1,000 mg PO BID [facility] Last Admin: 01/12/20 09:22 Dose: 1,000 mg Documented by: Aspirin (Ecotrin -) 81 mg PO DAILY [facility] Last Admin: 01/12/20 09:22 Dose: 81 mg Documented by: Enoxaparin Sodium (Lovenox -) 180 mg SQ BID [facility] Last Admin: 01/12/20 09:22 Dose: 180 mg Documented by: Ceftriaxone Sodium 1 gm/ (Dextrose) 50 mls @ 100 mls/hr IVPB DAILY [facility]; Protocol Last Admin: 01/12/20 09:22 Dose: 100 mls/hr Documented by: Zinc Sulfate (Orazinc -) 220 mg PO BID [facility] Last Admin: 01/12/20 09:22 Dose: 220 mg Documented by: - Objective Vital Signs: Vital Signs Temperature 98.4 F 01/12/20 09:24 Pulse Rate 92 H 01/12/20 09:24 Respiratory Rate 22 H 01/12/20 09:24 Blood Pressure 147/78 01/12/20 09:24 O2 Sat by Pulse Oximetry (%) 100 01/12/20 09:00 Constitutional: Yes: Calm, Mild Distress, Obese Cardiovascular: Yes: S1, S2 Respiratory: Yes: On Nasal O2, Poor Air Entry, Other (on face mask) Gastrointestinal: Yes: Normal Bowel Sounds, Soft Musculoskeletal: Yes: WNL Extremities: Yes: WNL Neurological: Yes: Alert, Oriented Psychiatric: Yes: Alert, Oriented Labs: CBC, BMP 01/11/20 06:28 01/11/20 06:28 INR, PTT INR 1.35 (0.83-1.09) H 01/09/20 13:00 Assessment/Plan Problem List - Problems (1) Asthma attack Code(s): J45.901 - UNSPECIFIED ASTHMA WITH (ACUTE) EXACERBATION (2) Asthma exacerbation Code(s): J45.901 - UNSPECIFIED ASTHMA WITH (ACUTE) EXACERBATION (3) Bronchitis Code(s): J40 - BRONCHITIS, NOT SPECIFIED ACUTE OR CHRONIC (4) COVID-19 Code(s): U07.1 - COVID POSITIVE (6) Cough Code(s): R05 - COUGH (7) Diabetes Code(s): E11.9 - TYPE 2 DIABETES MELLITUS WITHOUT COMPLICATIONS (8) Fever Code(s): R50.9 - FEVER, UNSPECIFIED (9) HTN (hypertension) Code(s): I10 - ESSENTIAL (PRIMARY) HYPERTENSION (10) Morbid obesity Code(s): E66.01 - MORBID (SEVERE) OBESITY DUE TO EXCESS CALORIES (11) Morbid obesity Code(s): E66.01 - MORBID (SEVERE) OBESITY DUE TO EXCESS CALORIES (13) Pilonidal abscess Code(s): L05.01 - PILONIDAL CYST WITH ABSCESS plan continue current mgmt resp support abx close watch rest as per the team
[2020-01-12] MEDS ORDERED: ATORVASTATIN CA 80 MG TABLET (FP) PO ONE (13:15)
--- NOTE | 2020-01-12 14:31 | PN ---
Progress Note (short form) - Note Progress Note: PULMONARY VSS/AFEBRILE OOB TO CHAIR EATING LUNCH NOW WEARING NRB WITH 100% SPO2 Constitutional: Yes: Calm Eyes: Yes: EOM Intact HENT: Yes: Normocephalic Neck: Yes: Trachea Midline Cardiovascular: Yes: Regular Rate and Rhythm Respiratory: Yes: Diminished Gastrointestinal: Yes: Abdomen, Obese Edema: LLE: 1+, RLE: 1+ Neurological: Yes: Alert Labs: REVIEWED INFLAMMATORY MARKERS ARE DECREASING Chest X-ray: Report Reviewed, Image Reviewed Ultrasound: Report Reviewed EKG: Report Reviewed, Image Reviewed Problem List - Problems (1) Sleep apnea Code(s): G47.30 - SLEEP APNEA, UNSPECIFIED (2) Hypoxia Code(s): R09.02 - HYPOXEMIA (3) Suspected COVID-19 virus infection Code(s): R68.89 - OTHER GENERAL SYMPTOMS AND SIGNS (4) Asthma exacerbation Code(s): J45.901 - UNSPECIFIED ASTHMA WITH (ACUTE) EXACERBATION (5) Diabetes Code(s): E11.9 - TYPE 2 DIABETES MELLITUS WITHOUT COMPLICATIONS (6) HTN (hypertension) Code(s): I10 - ESSENTIAL (PRIMARY) HYPERTENSION (7) Morbid obesity Code(s): E66.01 - MORBID (SEVERE) OBESITY DUE TO EXCESS CALORIES Assessment/Plan DISCHARGED ON THE December/RETURNS ON THE WITH SOB AFEBRILE/100 SPO2 ON NRB WEIGHS 398 LBS/STATES HE USED TO HAVE SLEEP APNEA? COMPLETED TREATMENT FOR HIS COVID POSITIVE PNEUMONIA 10 DAYS AGO. AGREE WITH EMPIRIC ANTIBIOTICS/O2 SUPPLEMENTATION/HAVE SCALED DOWN TO 50% VM CONSIDER PAP HS/PRN WILL NEED PSG OUTPATIENT DISCHARGE PLANNING /MAY NEED HOME O2 Magalie ORTIZ MD Problem List - Problems (1) Sleep apnea Code(s): G47.30 - SLEEP APNEA, UNSPECIFIED (2) Hypoxia Code(s): R09.02 - HYPOXEMIA (3) Suspected COVID-19 virus infection Code(s): R68.89 - OTHER GENERAL SYMPTOMS AND SIGNS (4) Asthma exacerbation Code(s): J45.901 - UNSPECIFIED ASTHMA WITH (ACUTE) EXACERBATION (5) Diabetes Code(s): E11.9 - TYPE 2 DIABETES MELLITUS WITHOUT COMPLICATIONS (6) HTN (hypertension) Code(s): I10 - ESSENTIAL (PRIMARY) HYPERTENSION (7) Morbid obesity Code(s): E66.01 - MORBID (SEVERE) OBESITY DUE TO EXCESS CALORIES
--- NOTE | 2020-01-12 19:46 | PN ---
Progress Note, Physician History of Present Illness: 29M with h/o HTN, asthma, morbid obesity, recent admission for asthma flare 2/2 confirmed COVID infection, presenting to ED with worsening SOB. Pt reports that over the past few days, he has been getting more short of breath. He used his albuterol MDI with no relief. Pt also notes that he has been having worsening swelling of both lower extremities. This was reported on his prior admission but acutely worsened last night. Pt denies F/C. - Current Medication List Current Medications: Active Medications Acetaminophen (Tylenol -) 650 mg PO Q6H PRN PRN Reason: FEVER Last Admin: 01/12/20 03:29 Dose: 650 mg Documented by: Albuterol Sulfate (Ventolin Hfa Inhaler -) 2 puff IH Q4H PRN PRN Reason: SHORT OF BREATH/WHEEZING Last Admin: 01/11/20 09:48 Dose: 2 puff Documented by: Ascorbic Acid (Vitamin C) 1,000 mg PO BID [facility] Last Admin: 01/12/20 09:22 Dose: 1,000 mg Documented by: Aspirin (Ecotrin -) 81 mg PO DAILY [facility] Last Admin: 01/12/20 09:22 Dose: 81 mg Documented by: Atorvastatin Calcium (Lipitor -) 80 mg PO HS [facility] Enoxaparin Sodium (Lovenox -) 180 mg SQ BID [facility] Last Admin: 01/12/20 09:22 Dose: 180 mg Documented by: Ceftriaxone Sodium 1 gm/ (Dextrose) 50 mls @ 100 mls/hr IVPB DAILY [facility]; Protocol Last Admin: 01/12/20 09:22 Dose: 100 mls/hr Documented by: Zinc Sulfate (Orazinc -) 220 mg PO BID [facility] Last Admin: 01/12/20 09:22 Dose: 220 mg Documented by: - Objective Vital Signs: Vital Signs Temperature 98.7 F 01/12/20 18:00 Pulse Rate 103 H 01/12/20 18:00 Respiratory Rate 20 01/12/20 18:00 Blood Pressure 136/91 01/12/20 18:00 O2 Sat by Pulse Oximetry (%) 100 01/12/20 09:00 Eyes: Yes: WNL, Conjunctiva Clear, EOM Intact HENT: Yes: WNL, Atraumatic, Normocephalic Neck: Yes: WNL, Supple, Trachea Midline Cardiovascular: Yes: WNL, Regular Rate and Rhythm Respiratory: Yes: Diminished Gastrointestinal: Yes: WNL, Normal Bowel Sounds Genitourinary: Yes: WNL Musculoskeletal: Yes: WNL Extremities: Yes: WNL Edema: No Integumentary: Yes: WNL Neurological: Yes: WNL, Alert, Oriented ...Motor Strength: WNL Psychiatric: Yes: WNL Labs: CBC, BMP 01/11/20 06:28 01/11/20 06:28 INR, PTT INR 1.35 (0.83-1.09) H 01/09/20 13:00 Problem List - Problems (1) Asthma attack Code(s): J45.901 - UNSPECIFIED ASTHMA WITH (ACUTE) EXACERBATION (2) Asthma exacerbation Code(s): J45.901 - UNSPECIFIED ASTHMA WITH (ACUTE) EXACERBATION (3) Bronchitis Code(s): J40 - BRONCHITIS, NOT SPECIFIED ACUTE OR CHRONIC (4) COVID-19 Code(s): U07.1 - COVID POSITIVE (5) Cellulitis Code(s): L03.90 - CELLULITIS, UNSPECIFIED (6) Cough Code(s): R05 - COUGH (7) Diabetes Code(s): E11.9 - TYPE 2 DIABETES MELLITUS WITHOUT COMPLICATIONS (8) Fever Code(s): R50.9 - FEVER, UNSPECIFIED (9) HTN (hypertension) Code(s): I10 - ESSENTIAL (PRIMARY) HYPERTENSION (10) Morbid obesity Code(s): E66.01 - MORBID (SEVERE) OBESITY DUE TO EXCESS CALORIES (11) Morbid obesity Code(s): E66.01 - MORBID (SEVERE) OBESITY DUE TO EXCESS CALORIES (12) Otitis externa Code(s): H60.90 - UNSPECIFIED OTITIS EXTERNA, UNSPECIFIED EAR Qualifiers: Otitis externa type: unspecified type Chronicity: acute Laterality: right Qualified Code(s): H60.501 - Unspecified acute noninfective otitis externa, right ear (13) Pilonidal abscess Code(s): L05.01 - PILONIDAL CYST WITH ABSCESS (14) Suspected COVID-19 virus infection Code(s): R68.89 - OTHER GENERAL SYMPTOMS AND SIGNS (15) Swollen leg Code(s): M79.89 - OTHER SPECIFIED SOFT TISSUE DISORDERS (16) Tachycardia Code(s): R00.0 - TACHYCARDIA, UNSPECIFIED (17) Tooth pain Code(s): K08.8 - OTHER SPECIFIED DISORDERS OF TEETH AND SUPPOR * DO NOT USE * (18) URI (upper respiratory infection) Code(s): J06.9 - ACUTE UPPER RESPIRATORY INFECTION, UNSPECIFIED Qualifiers: URI type: unspecified viral URI Qualified Code(s): J06.9 - Acute upper respiratory infection, unspecified (19) Varicose veins Code(s): I86.8 - VARICOSE VEINS OF OTHER SPECIFIED SITES Assessment/Plan HTN, asthma, morbid obesity, recent admission for asthma flare 2/2 confirmed COVID infection, presenting to ED with worsening SOB. positive TNIs Plan; Agree with ASA Lovonox AC Azithromycin/Cefriaxone Cardiac w/u (ECHO; stress MIBI) when stable and COVID pnemonitis resolves start statin (elevated lipid profile). F/u BP serially. Avoid beta blockers (hx asthma); caution with ACEI or ARB (elevated potassium); consider amlodipine.
--- NOTE | 2020-01-12 20:21 | PN ---
Progress Note, Physician History of Present Illness: Pt still w/ SOB - Current Medication List Current Medications: Active Medications Acetaminophen (Tylenol -) 650 mg PO Q6H PRN PRN Reason: FEVER Last Admin: 01/12/20 03:29 Dose: 650 mg Documented by: Albuterol Sulfate (Ventolin Hfa Inhaler -) 2 puff IH Q4H PRN PRN Reason: SHORT OF BREATH/WHEEZING Last Admin: 01/11/20 09:48 Dose: 2 puff Documented by: Ascorbic Acid (Vitamin C) 1,000 mg PO BID [facility] Last Admin: 01/12/20 09:22 Dose: 1,000 mg Documented by: Aspirin (Ecotrin -) 81 mg PO DAILY [facility] Last Admin: 01/12/20 09:22 Dose: 81 mg Documented by: Atorvastatin Calcium (Lipitor -) 80 mg PO HS [facility] Enoxaparin Sodium (Lovenox -) 180 mg SQ BID [facility] Last Admin: 01/12/20 09:22 Dose: 180 mg Documented by: Ceftriaxone Sodium 1 gm/ (Dextrose) 50 mls @ 100 mls/hr IVPB DAILY [facility]; Protocol Last Admin: 01/12/20 09:22 Dose: 100 mls/hr Documented by: Zinc Sulfate (Orazinc -) 220 mg PO BID [facility] Last Admin: 01/12/20 09:22 Dose: 220 mg Documented by: - Objective Vital Signs: Vital Signs Temperature 98.9 F 01/12/20 20:05 Pulse Rate 94 H 01/12/20 20:05 Respiratory Rate 20 01/12/20 20:05 Blood Pressure 100/55 L 01/12/20 20:05 O2 Sat by Pulse Oximetry (%) 94 L 01/12/20 20:05 Cardiovascular: Yes: WNL, Regular Rate and Rhythm Respiratory: Yes: Other (Coarse BS B/L) Gastrointestinal: Yes: WNL, Normal Bowel Sounds, Soft Labs: CBC, BMP 01/11/20 06:28 01/11/20 06:28 INR, PTT INR 1.35 (0.83-1.09) H 01/09/20 13:00 Problem List - Problems (1) COVID-19 Assessment/Plan: Cont IV ceftriaxone Cont albuterol Cont lovenox(D-Dimer >4000) O2 sat 94% on [place] Code(s): U07.1 - COVID POSITIVE (2) Hypoxia Assessment/Plan: Due to COVID Code(s): R09.02 - HYPOXEMIA (3) Elevated troponin Assessment/Plan: As per cardio Further w/u once COVID resolved Code(s): R79.89 - OTHER SPECIFIED ABNORMAL FINDINGS OF BLOOD CHEMISTRY (4) HTN (hypertension) Assessment/Plan: BP stable Code(s): I10 - ESSENTIAL (PRIMARY) HYPERTENSION (5) Morbid obesity Code(s): E66.01 - MORBID (SEVERE) OBESITY DUE TO EXCESS CALORIES
[2020-01-13 08:21] LABS: BASO % 0.3 % (0-2.0); EOS % 0.8 % (0-4.5); HEMATOCRIT 37.8 % (35.4-49); HEMOGLOBIN 12.5 GM/dL (11.7-16.9); LYMPH % 17.3 % (8-40); MCH 27.2 pg (25.7-33.7); MCHC 33.2 g/dl (32.0-35.9); MEAN CELL VOLUME 82.1 fl (80-96); MEAN PLT VOLUME 8.7 fl (7.5-11.1); MONO % 5.4 % (3.8-10.2); NEUT % 76.2 % (42.8-82.8); PLATELET COUNT 412 K/MM3 (134-434); RDW 16.1 % (11.9-15.9); WHITE BLOOD COUNT 8.7 K/mm3 (4.0-10.0)
[2020-01-13 08:57] LABS: ALBUMIN 2.4 g/dl (3.4-5.0); BILIRUBIN,TOTAL 0.4 mg/dL (0.2-1); BLOOD UREA NITROGEN 9.3 mg/dL (7-18); CALCIUM 8.4 mg/dL (8.5-10.1); CREATININE 0.6 mg/dL (0.55-1.3); POTASSIUM 4.6 mmol/L (3.5-5.1)
[2020-01-13] MEDS ORDERED: DEXTROSE 5%-WATER - 50 ML IVPB ONE (09:55)
[2020-01-13] MEDS ORDERED: cefTRIAXone SODIUM 1 GM VIAL ONE (09:55)
[2020-01-13] MEDS: ZINC SULFATE 220 MG CAPSULE (FP) PO SCH ×2 (10:01→21:49)
[2020-01-13] MEDS: ASPIRIN COATED 81 MG TABLET.EC PO SCH (10:02)
[2020-01-13] MEDS: ASCORBIC ACID 1,000 MG TABLET PO SCH ×2 (10:02→21:49)
[2020-01-13] MEDS: CEFTRIAXONE 1 GM in DEXTROSE 5%-WATER - 50 ML IVPB SCH (10:02)
[2020-01-13 11:04] LABS: ANISOCYTOSIS 2+; MACROCYTOSIS 0; PLATELET ESTIMATE NORMAL; TEAR DROP CELLS 1+
--- NOTE | 2020-01-13 13:32 | PN ---
Progress Note, Physician Chief Complaint: Pt A&Ox3; sitting in chair (where he sometimes sleeps, because lying in bed causes him to cough); no chest pain; only c/o dyspnea walking to bathroom. History of Present Illness: 29 yr old man with h/o confirmed COVID infection with asthma flareup ? 11/09 HTN, morbid obesity (weighed over 400 lbs; lost 200 lbs in a year while eating "baby food" and anticipating gastric bypass surgery, which ultimately was not done; became depressed, and regained weight to present 398 lbs);depression, hepatosplenomegaly, fatty liver, presenting to ED with worsening SOB. Pt reports that over the past few days, he has been getting more short of breath. He used his albuterol MDI with no relief. Pt also notes that he has been having worsening swelling of both lower extremities. This was reported on his prior admission but acutely worsened last night. Pt denies F/C. - Current Medication List Current Medications: Active Medications Acetaminophen (Tylenol -) 650 mg PO Q6H PRN PRN Reason: FEVER Last Admin: 01/12/20 03:29 Dose: 650 mg Documented by: Albuterol Sulfate (Ventolin Hfa Inhaler -) 2 puff IH Q4H PRN PRN Reason: SHORT OF BREATH/WHEEZING Last Admin: 01/11/20 09:48 Dose: 2 puff Documented by: Ascorbic Acid (Vitamin C) 1,000 mg PO BID [facility] Last Admin: 01/13/20 10:02 Dose: 1,000 mg Documented by: Aspirin (Ecotrin -) 81 mg PO DAILY [facility] Last Admin: 01/13/20 10:02 Dose: 81 mg Documented by: Atorvastatin Calcium (Lipitor -) 80 mg PO [facility] Enoxaparin Sodium (Lovenox -) 180 mg SQ BID [facility] Last Admin: 01/12/20 21:18 Dose: 180 mg Documented by: Ceftriaxone Sodium 1 gm/ (Dextrose) 50 mls @ 100 mls/hr IVPB DAILY [facility]; Protocol Last Admin: 01/13/20 10:02 Dose: 100 mls/hr Documented by: Zinc Sulfate (Orazinc -) 220 mg PO BID [facility] Last Admin: 01/13/20 10:01 Dose: 220 mg Documented by: - Objective Vital Signs: Vital Signs Temperature 97.8 F 01/13/20 10:00 Pulse Rate 97 H 04/25/20 10:00 Respiratory Rate 23 H 01/13/20 10:00 Blood Pressure 126/68 01/13/20 10:00 O2 Sat by Pulse Oximetry (%) 97 01/13/20 09:00 Constitutional: Yes: Anxious, Obese Eyes: Yes: WNL HENT: Yes: WNL Neck: Yes: WNL Cardiovascular: Yes: Tachycardia, S1, S2 Respiratory: Yes: Diminished, SOB on Exertion Gastrointestinal: Yes: Abdomen, Obese ...Rectal Exam: Yes: Deferred Genitourinary: No: Anuria Breast(s): Yes: WNL Musculoskeletal: Yes: Muscle Weakness Extremities: Yes: Cool Edema: No Peripheral Pulses WNL: Yes Integumentary: Yes: Tattoos Neurological: Yes: WNL Psychiatric: Yes: Alert, Oriented, Other Labs: CBC, BMP 01/13/20 06:20 01/13/20 06:20 INR, PTT INR 1.35 (0.83-1.09) H 01/09/20 13:00 Abnormal Lab Results 01/14/20 01/14/20 01/14/20 09:56 10:20 10:45 RDW 16.6 H Plt Count 460 H Myelocytes % (Man) 3 H D D-Dimer 3392 H Anion Gap 7 L Random Glucose 146 H Ferritin 687.9 H AST 50 H ALT 114 H LD Total 437 H C-Reactive Protein 4.7 H Albumin 2.7 L - ....Imaging Chest X-ray: Image Reviewed EKG: Image Reviewed Assessment/Plan HTN, asthma, morbid obesity,hepatosplenomegaly, fatty liver, sleep apnea (was on ?CPAP at 9 yrs old, but stopped using it many years ago; excessive snoring and "stopped breathing while asleep" diminished markedly when he lost 200 lbs); recent admission for asthma flare 2/2 confirmed COVID infection, presenting to ED with worsening SOB. positive TNI to 1.75 max; low CKMB relative index. Plan; Agree with ASA Lovonox AC Azithromycin/Cefriaxone Reported COVID positive on previous admission; negative this admission. Cardiac w/u (ECHO for LVEF, wall motion, valve status; stress MIBI) when stable and COVID pnemonitis resolves. started atorvastatin 80 mg daily(elevated lipid profile). F/u BP serially. Avoid beta blockers (hx asthma); caution with ACEI or ARB (elevated potassium); consider amlodipine (though BP now appears better- controlled). 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
[2020-01-13] MEDS ORDERED: ENOXAPARIN NA (PORCINE) 80 MG/0.8 ML DISP.SYRIN SQ ONE ×2 (14:13→21:47)
[2020-01-13] MEDS ORDERED: ENOXAPARIN NA (PORCINE) 100 MG/1 ML DISP.SYRIN SQ ONE ×2 (14:13→21:47)
[2020-01-13] MEDS: ENOXAPARIN NA (PORCINE) 60 MG/0.6 ML DISP.SYRIN SQ SCH (14:14)
[2020-01-13] MEDS: ENOXAPARIN 100 MG, ENOXAPARIN 80 MG SQ SCH ×2 (14:14→21:49)
--- NOTE | 2020-01-13 20:23 | PN ---
Progress Note, Physician History of Present Illness: Pt still w/ SOB and lying in bed - Current Medication List Current Medications: Active Medications Acetaminophen (Tylenol -) 650 mg PO Q6H PRN PRN Reason: FEVER Last Admin: 01/12/20 03:29 Dose: 650 mg Documented by: Albuterol Sulfate (Ventolin Hfa Inhaler -) 2 puff IH Q4H PRN PRN Reason: SHORT OF BREATH/WHEEZING Last Admin: 01/11/20 09:48 Dose: 2 puff Documented by: Ascorbic Acid (Vitamin C) 1,000 mg PO BID [facility] Last Admin: 01/13/20 10:02 Dose: 1,000 mg Documented by: Aspirin (Ecotrin -) 81 mg PO DAILY [facility] Last Admin: 01/13/20 10:02 Dose: 81 mg Documented by: Atorvastatin Calcium (Lipitor -) 80 mg PO [facility] Enoxaparin Sodium 100 mg/ (Enoxaparin Sodium 80 mg) 180 mg SQ BID [facility] Last Admin: 01/13/20 14:14 Dose: 180 mg Documented by: Ceftriaxone Sodium 1 gm/ (Dextrose) 50 mls @ 100 mls/hr IVPB DAILY [facility]; Protocol Last Admin: 01/13/20 10:02 Dose: 100 mls/hr Documented by: Zinc Sulfate (Orazinc -) 220 mg PO BID [facility] Last Admin: 01/13/20 10:01 Dose: 220 mg Documented by: - Objective Vital Signs: Vital Signs Temperature 97.5 F L 01/13/20 18:00 Pulse Rate 111 H 01/13/20 18:00 Respiratory Rate 22 H 01/13/20 18:00 Blood Pressure 117/75 01/13/20 18:00 O2 Sat by Pulse Oximetry (%) 97 01/13/20 09:00 Cardiovascular: Yes: Tachycardia Respiratory: Yes: Other (Bibasilar crackles) Gastrointestinal: Yes: WNL, Normal Bowel Sounds, Soft, Abdomen, Obese Labs: CBC, BMP 01/13/20 06:20 01/13/20 06:20 INR, PTT INR 1.35 (0.83-1.09) H 01/09/20 13:00 Problem List - Problems (1) COVID-19 Assessment/Plan: Repeat CXR (01/12/20) still showed diffusde B/L infiltrates Cont IV ceftriaxone Cont albuterol/vit C/zinc Cont lovenox(D-Dimer >4000) Ferritin increasing O2 sat 97% on NC Code(s): U07.1 - COVID POSITIVE (2) Hypoxia Assessment/Plan: Due to COVID Code(s): R09.02 - HYPOXEMIA (3) Elevated troponin Assessment/Plan: As per cardio Further w/u once COVID resolved Code(s): R79.89 - OTHER SPECIFIED ABNORMAL FINDINGS OF BLOOD CHEMISTRY (4) HTN (hypertension) Assessment/Plan: BP stable Code(s): I10 - ESSENTIAL (PRIMARY) HYPERTENSION (5) Morbid obesity Code(s): E66.01 - MORBID (SEVERE) OBESITY DUE TO EXCESS CALORIES
--- NOTE | 2020-01-13 20:32 | PN ---
Progress Note, Physician History of Present Illness: Pt afebrile but still with some SOB, no acute distress noted. 97% O2 sat on 4L NC - Current Medication List Current Medications: Active Medications Acetaminophen (Tylenol -) 650 mg PO Q6H PRN PRN Reason: FEVER Last Admin: 01/12/20 03:29 Dose: 650 mg Documented by: Albuterol Sulfate (Ventolin Hfa Inhaler -) 2 puff IH Q4H PRN PRN Reason: SHORT OF BREATH/WHEEZING Last Admin: 01/11/20 09:48 Dose: 2 puff Documented by: Ascorbic Acid (Vitamin C) 1,000 mg PO BID [facility] Last Admin: 01/13/20 10:02 Dose: 1,000 mg Documented by: Aspirin (Ecotrin -) 81 mg PO DAILY [facility] Last Admin: 01/13/20 10:02 Dose: 81 mg Documented by: Atorvastatin Calcium (Lipitor -) 80 mg PO [facility] Enoxaparin Sodium 100 mg/ (Enoxaparin Sodium 80 mg) 180 mg SQ BID [facility] Last Admin: 01/13/20 14:14 Dose: 180 mg Documented by: Ceftriaxone Sodium 1 gm/ (Dextrose) 50 mls @ 100 mls/hr IVPB DAILY [facility]; Protocol Last Admin: 01/13/20 10:02 Dose: 100 mls/hr Documented by: Zinc Sulfate (Orazinc -) 220 mg PO BID [facility] Last Admin: 01/13/20 10:01 Dose: 220 mg Documented by: - Objective Vital Signs: Vital Signs Temperature 97.5 F L 01/13/20 18:00 Pulse Rate 111 H 01/13/20 18:00 Respiratory Rate 22 H 01/13/20 18:00 Blood Pressure 117/75 01/13/20 18:00 O2 Sat by Pulse Oximetry (%) 97 01/13/20 09:00 Constitutional: Yes: No Distress Cardiovascular: Yes: Tachycardia Respiratory: Yes: Diminished, On Nasal O2 Gastrointestinal: Yes: Normal Bowel Sounds, Soft Neurological: Yes: Alert Labs: CBC, BMP 01/13/20 06:20 01/13/20 06:20 INR, PTT INR 1.35 (0.83-1.09) H 01/09/20 13:00 Laboratory Results - last 24 hr 01/13/20 01/13/20 01/13/20 06:20 06:20 06:20 WBC 8.7 RBC 4.60 Hgb 12.5 Hct 37.8 MCV 82.1 MCH 27.2 MCHC 33.2 RDW 16.1 H Plt Count 412 D MPV 8.7 Absolute Neuts (auto) 6.6 Neutrophils % 76.2 Neutrophils % (Manual) 64.7 Band Neutrophils % 2.9 Lymphocytes % 17.3 Lymphocytes % (Manual) 27.5 D Monocytes % 5.4 Monocytes % (Manual) 0 L D Eosinophils % 0.8 D Eosinophils % (Manual) 0.0 Basophils % 0.3 Basophils % (Manual) 0.0 Myelocytes % (Man) 1 D Promyelocytes % (Man) 0 Blast Cells % (Manual) 0 Nucleated RBC % 0 Metamyelocytes 3 H D Hypochromia 0 Platelet Estimate Normal Polychromasia 1+ Poikilocytosis 1+ Anisocytosis 2+ Microcytosis 2+ Macrocytosis 0 Tear Drop Cells 1+ D-Dimer Sodium 140 Potassium 4.6 Chloride 103 Carbon Dioxide 30 Anion Gap 6 L BUN 9.3 Creatinine 0.6 Est GFR (CKD-EPI)AfAm 156.37 Est GFR (CKD-EPI)NonAf 134.92 Random Glucose 82 Calcium 8.4 L Ferritin 718.9 H Total Bilirubin 0.4 AST 63 H ALT 87 H Alkaline Phosphatase 48 C-Reactive Protein 5.9 H Total Protein 6.0 L Albumin 2.4 L 01/13/20 06:20 WBC RBC Hgb Hct MCV MCH MCHC RDW Plt Count MPV Absolute Neuts (auto) Neutrophils % Neutrophils % (Manual) Band Neutrophils % Lymphocytes % Lymphocytes % (Manual) Monocytes % Monocytes % (Manual) Eosinophils % Eosinophils % (Manual) Basophils % Basophils % (Manual) Myelocytes % (Man) Promyelocytes % (Man) Blast Cells % (Manual) Nucleated RBC % Metamyelocytes Hypochromia Platelet Estimate Polychromasia Poikilocytosis Anisocytosis Microcytosis Macrocytosis Tear Drop Cells D-Dimer 4631 H Sodium Potassium Chloride Carbon Dioxide Anion Gap BUN Creatinine Est GFR (CKD-EPI)AfAm Est GFR (CKD-EPI)NonAf Random Glucose Calcium Ferritin Total Bilirubin AST ALT Alkaline Phosphatase C-Reactive Protein Total Protein Albumin Microbiology 01/09/20 13:00 Blood - Peripheral Venous Blood Culture - Preliminary NO GROWTH OBTAINED AFTER 96 HOURS, INCUBATION TO CONTINUE FOR 1 DAYS. 01/09/20 13:00 Blood - Peripheral Venous Blood Culture - Preliminary NO GROWTH OBTAINED AFTER 96 HOURS, INCUBATION TO CONTINUE FOR 1 DAYS. Problem List - Problems (1) Hypoxia Code(s): R09.02 - HYPOXEMIA (2) COVID-19 Code(s): U07.1 - COVID POSITIVE (3) Diabetes Code(s): E11.9 - TYPE 2 DIABETES MELLITUS WITHOUT COMPLICATIONS (4) HTN (hypertension) Code(s): I10 - ESSENTIAL (PRIMARY) HYPERTENSION (5) Morbid obesity Code(s): E66.01 - MORBID (SEVERE) OBESITY DUE TO EXCESS CALORIES Assessment/Plan - O2 supplementation -- monitor inflammatory markers --s/p Azithromycin, cont. Ceftriaxone
[2020-01-13] MEDS: ATORVASTATIN CA 80 MG TABLET (FP) PO SCH (21:49)
[2020-01-14] MEDS ORDERED: ENOXAPARIN NA (PORCINE) 100 MG/1 ML DISP.SYRIN SQ ONE ×2 (08:52→22:36)
[2020-01-14] MEDS ORDERED: DEXTROSE 5%-WATER - 50 ML IVPB ONE (08:53)
[2020-01-14] MEDS ORDERED: cefTRIAXone SODIUM 1 GM VIAL ONE (08:53)
[2020-01-14] MEDS ORDERED: ENOXAPARIN NA (PORCINE) 80 MG/0.8 ML DISP.SYRIN SQ ONE ×2 (08:53→22:36)
[2020-01-14] MEDS: ENOXAPARIN 100 MG, ENOXAPARIN 80 MG SQ SCH ×2 (10:20→22:55)
[2020-01-14] MEDS: ASPIRIN COATED 81 MG TABLET.EC PO SCH (10:20)
[2020-01-14] MEDS: CEFTRIAXONE 1 GM in DEXTROSE 5%-WATER - 50 ML IVPB SCH (10:21)
[2020-01-14] MEDS: ZINC SULFATE 220 MG CAPSULE (FP) PO SCH ×2 (10:21→22:55)
[2020-01-14] MEDS: ASCORBIC ACID 1,000 MG TABLET PO SCH ×2 (10:36→22:55)
[2020-01-14 12:33] LABS: BASO % 0.8 % (0-2.0); EOS % 0.8 % (0-4.5); HEMATOCRIT 39.8 % (35.4-49); HEMOGLOBIN 12.9 GM/dL (11.7-16.9); LYMPH % 14.5 % (8-40); MCH 27.2 pg (25.7-33.7); MCHC 32.5 g/dl (32.0-35.9); MEAN CELL VOLUME 83.9 fl (80-96); MEAN PLT VOLUME 8.6 fl (7.5-11.1); MONO % 3.8 % (3.8-10.2); NEUT % 80.1 % (42.8-82.8); PLATELET COUNT 460 K/MM3 (134-434); RBC 4.74 M/mm3 (4.00-5.60); RDW 16.6 % (11.9-15.9); WHITE BLOOD COUNT 9.2 K/mm3 (4.0-10.0)
[2020-01-14 13:14] LABS: ALBUMIN 2.7 g/dl (3.4-5.0); BILIRUBIN,TOTAL 0.4 mg/dL (0.2-1); BLOOD UREA NITROGEN 8.5 mg/dL (7-18); CALCIUM 8.6 mg/dL (8.5-10.1); CREATININE 0.8 mg/dL (0.55-1.3); POTASSIUM 4.4 mmol/L (3.5-5.1); TOT PROT 6.5 g/dl (6.4-8.2)
[2020-01-14 13:43] LABS: ANISOCYTOSIS 0; MACROCYTOSIS 0; PLATELET ESTIMATE NORMAL
--- NOTE | 2020-01-14 14:12 | PN ---
Progress Note, Physician Chief Complaint: Pt A&Ox3; lying on right side ("I don't cough much this way"); no chest pain; + dyspnea on mild-moderate exertion. Uncomfortable; wants to take a shower. History of Present Illness: 29 yr old man with h/o confirmed COVID infection with asthma flareup ? 11/09 HTN, morbid obesity (weighed over 400 lbs; lost 200 lbs in a year while eating "baby food" and anticipating gastric bypass surgery, which ultimately was not done; became depressed, and regained weight to present 398 lbs);depression, hepatosplenomegaly, fatty liver, presenting to ED with worsening SOB. Pt reports that over the past few days, he has been getting more short of breath. He used his albuterol MDI with no relief. Pt also notes that he has been having worsening swelling of both lower extremities. This was reported on his prior admission but acutely worsened last night. Pt denies F/C. - Current Medication List Current Medications: Active Medications Acetaminophen (Tylenol -) 650 mg PO Q6H PRN PRN Reason: FEVER Last Admin: 01/12/20 03:29 Dose: 650 mg Documented by: Albuterol Sulfate (Ventolin Hfa Inhaler -) 2 puff IH Q4H PRN PRN Reason: SHORT OF BREATH/WHEEZING Last Admin: 01/11/20 09:48 Dose: 2 puff Documented by: Ascorbic Acid (Vitamin C) 1,000 mg PO BID [facility] Last Admin: 01/14/20 10:36 Dose: 1,000 mg Documented by: Aspirin (Ecotrin -) 81 mg PO DAILY [facility] Last Admin: 01/14/20 10:20 Dose: 81 mg Documented by: Atorvastatin Calcium (Lipitor -) 80 mg PO HS [facility] Last Admin: 01/13/20 21:49 Dose: 80 mg Documented by: Enoxaparin Sodium 100 mg/ (Enoxaparin Sodium 80 mg) 180 mg SQ BID [facility] Last Admin: 01/14/20 10:20 Dose: 180 mg Documented by: Ceftriaxone Sodium 1 gm/ (Dextrose) 50 mls @ 100 mls/hr IVPB DAILY [facility]; Protoco l Last Admin: 01/14/20 10:21 Dose: 100 mls/hr Documented by: Zinc Sulfate (Orazinc -) 220 mg PO BID [facility] Last Admin: 01/14/20 10:21 Dose: 220 mg Documented by: - Objective Vital Signs: Vital Signs Temperature 97.6 F 01/14/20 10:00 Pulse Rate 97 H 01/14/20 10:00 Respiratory Rate 01/14/20 11:42 Blood Pressure 106/66 01/14/20 10:00 O2 Sat by Pulse Oximetry (%) 96 01/14/20 11:42 Constitutional: Yes: Anxious, Obese Eyes: Yes: WNL HENT: Yes: WNL Neck: Yes: WNL Cardiovascular: Yes: S1, S2 Respiratory: Yes: Diminished, Tachypnea Gastrointestinal: Yes: Soft, Abdomen, Obese ...Rectal Exam: Yes: Deferred Genitourinary: No: Anuria Breast(s): Yes: WNL Musculoskeletal: Yes: Joint Stiffness, Muscle Weakness Extremities: Yes: Cool Edema: No Peripheral Pulses WNL: Yes Integumentary: Yes: WNL Neurological: Yes: WNL ...Motor Strength: WNL Psychiatric: Yes: Alert, Oriented, Other (anxiety/depression; addiction (food() Labs: CBC, BMP 01/14/20 10:45 01/14/20 10:20 INR, PTT INR 1.35 (0.83-1.09) H 01/09/20 13:00 Abnormal Lab Results 01/14/20 01/14/20 01/14/20 09:56 10:20 10:45 RDW 16.6 H Plt Count 460 H Myelocytes % (Man) 3 H D D-Dimer 3392 H Anion Gap 7 L Random Glucose 146 H Ferritin 687.9 H AST 50 H ALT 114 H LD Total 437 H C-Reactive Protein 4.7 H Albumin 2.7 L - ....Imaging Chest X-ray: Image Reviewed EKG: Image Reviewed Assessment/Plan HTN, asthma, morbid obesity,hepatosplenomegaly, fatty liver, sleep apnea (was on ?CPAP at 9 yrs old, but stopped using it many years ago; excessive snoring and "stopped breathing while asleep" diminished markedly when he lost 200 lbs); recent admission for asthma flare 2/2 confirmed COVID infection, presenting to ED with worsening SOB. positive TNI to 1.75 max; low CKMB relative index. Elevated LFTs. Plan; Agree with ASA Lovonox AC Azithromycin/Cefriaxone Reported COVID positive on previous admission; negative this admission. Multiple cardiac risks, with elevated TNI: for cardiac w/u (ECHO for LVEF, wall motion, valve status; stress MIBI) when stable and COVID pnemonitis resolves. started atorvastatin 80 mg daily(elevated lipid profile and TNIs). F/u BP serially. Avoid beta blockers (hx asthma); caution with ACEI or ARB (elevated potassium); consider amlodipine (though BP now appears better-controlled). Sleep apnea: f/u with PMD (Dr. 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
--- NOTE | 2020-01-14 22:09 | PN ---
Progress Note, Physician History of Present Illness: Pt w/ SOB w/ minimal exertion - Current Medication List Current Medications: Active Medications Acetaminophen (Tylenol -) 650 mg PO Q6H PRN PRN Reason: FEVER Last Admin: 01/12/20 03:29 Dose: 650 mg Documented by: Albuterol Sulfate (Ventolin Hfa Inhaler -) 2 puff IH Q4H PRN PRN Reason: SHORT OF BREATH/WHEEZING Last Admin: 01/11/20 09:48 Dose: 2 puff Documented by: Ascorbic Acid (Vitamin C) 1,000 mg PO BID [facility] Last Admin: 01/14/20 10:36 Dose: 1,000 mg Documented by: Aspirin (Ecotrin -) 81 mg PO DAILY [facility] Last Admin: 01/14/20 10:20 Dose: 81 mg Documented by: Atorvastatin Calcium (Lipitor -) 80 mg PO HS [facility] Last Admin: 01/13/20 21:49 Dose: 80 mg Documented by: Enoxaparin Sodium 100 mg/ (Enoxaparin Sodium 80 mg) 180 mg SQ BID [facility] Last Admin: 01/14/20 10:20 Dose: 180 mg Documented by: Ceftriaxone Sodium 1 gm/ (Dextrose) 50 mls @ 100 mls/hr IVPB DAILY [facility]; Protocol Last Admin: 01/14/20 10:21 Dose: 100 mls/hr Documented by: Zinc Sulfate (Orazinc -) 220 mg PO BID [facility] Last Admin: 01/14/20 10:21 Dose: 220 mg Documented by: - Objective Vital Signs: Vital Signs Temperature 98.1 F 01/14/20 18:00 Pulse Rate 110 H 01/14/20 18:00 Respiratory Rate 20 01/14/20 18:00 Blood Pressure 121/71 01/14/20 18:00 O2 Sat by Pulse Oximetry (%) 95 01/14/20 18:16 Cardiovascular: Yes: Tachycardia Respiratory: Yes: Diminished Gastrointestinal: Yes: WNL, Normal Bowel Sounds, Soft, Abdomen, Obese Labs: CBC, BMP 01/14/20 10:45 01/14/20 10:20 INR, PTT INR 1.35 (0.83-1.09) H 01/09/20 13:00 Problem List - Problems (1) COVID-19 Assessment/Plan: Repeat CXR (01/12/20) still showed diffuse B/L infiltrates Cont IV ceftriaxone Cont albuterol/vit C/zinc Markers still elevated O2 sat 96% on 4L NC Code(s): U07.1 - COVID POSITIVE (2) Hypoxia Assessment/Plan: Due to COVID Code(s): R09.02 - HYPOXEMIA (3) Elevated troponin Assessment/Plan: As per cardio Further w/u once COVID resolved Code(s): R79.89 - OTHER SPECIFIED ABNORMAL FINDINGS OF BLOOD CHEMISTRY (4) HTN (hypertension) Assessment/Plan: BP stable Code(s): I10 - ESSENTIAL (PRIMARY) HYPERTENSION (5) Morbid obesity Code(s): E66.01 - MORBID (SEVERE) OBESITY DUE TO EXCESS CALORIES
[2020-01-14] MEDS: ATORVASTATIN CA 80 MG TABLET (FP) PO SCH (22:55)
[2020-01-15 08:10] LABS: BASO % 0.4 % (0-2.0); EOS % 0.1 % (0-4.5); HEMATOCRIT 37.5 % (35.4-49); HEMOGLOBIN 12.3 GM/dL (11.7-16.9); LYMPH % 19.1 % (8-40); MCH 27.1 pg (25.7-33.7); MCHC 32.7 g/dl (32.0-35.9); MEAN CELL VOLUME 82.9 fl (80-96); MEAN PLT VOLUME 8.4 fl (7.5-11.1); MONO % 6.5 % (3.8-10.2); NEUT % 73.9 % (42.8-82.8); PLATELET COUNT 417 K/MM3 (134-434); RBC 4.52 M/mm3 (4.00-5.60); RDW 16.6 % (11.9-15.9); WHITE BLOOD COUNT 9.3 K/mm3 (4.0-10.0)
[2020-01-15 09:06] LABS: ALBUMIN 2.6 g/dl (3.4-5.0); BILIRUBIN,TOTAL 0.3 mg/dL (0.2-1); BLOOD UREA NITROGEN 6.7 mg/dL (7-18); CALCIUM 8.5 mg/dL (8.5-10.1); CREATININE 0.7 mg/dL (0.55-1.3); POTASSIUM 4.9 mmol/L (3.5-5.1); TOT PROT 6.1 g/dl (6.4-8.2)
--- NOTE | 2020-01-15 09:14 | PN ---
Progress Note, Physician History of Present Illness: 29M with h/o HTN, asthma, morbid obesity, recent admission for asthma flare 2/2 confirmed COVID infection, presenting to ED with worsening SOB. Pt reports that over the past few days, he has been getting more short of breath. He used his albuterol MDI with no relief. Pt also notes that he has been having worsening swelling of both lower extremities. This was reported on his prior admission but acutely worsened last night. Pt denies F/C. - Current Medication List Current Medications: Active Medications Acetaminophen (Tylenol -) 650 mg PO Q6H PRN PRN Reason: FEVER Last Admin: 01/12/20 03:29 Dose: 650 mg Documented by: Albuterol Sulfate (Ventolin Hfa Inhaler -) 2 puff IH Q4H PRN PRN Reason: SHORT OF BREATH/WHEEZING Last Admin: 01/11/20 09:48 Dose: 2 puff Documented by: Ascorbic Acid (Vitamin C) 1,000 mg PO BID [facility] Last Admin: 01/14/20 22:55 Dose: 1,000 mg Documented by: Aspirin (Asa -) 81 mg PO DAILY [facility] Atorvastatin Calcium (Lipitor -) 80 mg PO HS [facility] Last Admin: 01/14/20 22:55 Dose: 80 mg Documented by: Enoxaparin Sodium 100 mg/ (Enoxaparin Sodium 80 mg) 180 mg SQ BID [facility] Last Admin: 01/14/20 22:55 Dose: 180 mg Documented by: Ceftriaxone Sodium 1 gm/ (Dextrose) 50 mls @ 100 mls/hr IVPB DAILY [facility]; Protoc ol Last Admin: 01/14/20 10:21 Dose: 100 mls/hr Documented by: Zinc Sulfate (Orazinc -) 220 mg PO BID [facility] Last Admin: 01/14/20 22:55 Dose: 220 mg Documented by: - Objective Vital Signs: Vital Signs Temperature 97.4 F L 01/15/20 05:57 Pulse Rate 90 01/15/20 05:57 Respiratory Rate 24 H 01/15/20 05:57 Blood Pressure 124/76 01/15/20 05:57 O2 Sat by Pulse Oximetry (%) 96 01/15/20 06:14 Eyes: Yes: WNL, Conjunctiva Clear, EOM Intact HENT: Yes: WNL, Atraumatic, Normocephalic Neck: Yes: WNL, Supple, Trachea Midline Cardiovascular: Yes: WNL, Regular Rate and Rhythm Respiratory: Yes: Diminished Gastrointestinal: Yes: WNL, Normal Bowel Sounds Genitourinary: Yes: WNL Musculoskeletal: Yes: WNL Extremities: Yes: WNL Edema: No Integumentary: Yes: WNL Neurological: Yes: WNL, Alert, Oriented ...Motor Strength: WNL Psychiatric: Yes: WNL Labs: CBC, BMP 01/15/20 05:50 01/15/20 05:50 INR, PTT INR 1.35 (0.83-1.09) H 01/09/20 13:00 Problem List - Problems (1) Asthma attack Code(s): J45.901 - UNSPECIFIED ASTHMA WITH (ACUTE) EXACERBATION (2) Asthma exacerbation Code(s): J45.901 - UNSPECIFIED ASTHMA WITH (ACUTE) EXACERBATION (3) Bronchitis Code(s): J40 - BRONCHITIS, NOT SPECIFIED ACUTE OR CHRONIC (4) COVID-19 Code(s): U07.1 - COVID POSITIVE (5) Cellulitis Code(s): L03.90 - CELLULITIS, UNSPECIFIED (6) Cough Code(s): R05 - COUGH (7) Diabetes Code(s): E11.9 - TYPE 2 DIABETES MELLITUS WITHOUT COMPLICATIONS (8) Fever Code(s): R50.9 - FEVER, UNSPECIFIED (9) HTN (hypertension) Code(s): I10 - ESSENTIAL (PRIMARY) HYPERTENSION (10) Morbid obesity Code(s): E66.01 - MORBID (SEVERE) OBESITY DUE TO EXCESS CALORIES (11) Morbid obesity Code(s): E66.01 - MORBID (SEVERE) OBESITY DUE TO EXCESS CALORIES (12) Otitis externa Code(s): H60.90 - UNSPECIFIED OTITIS EXTERNA, UNSPECIFIED EAR Qualifiers: Otitis externa type: unspecified type Chronicity: acute Laterality: right Qualified Code(s): H60.501 - Unspecified acute noninfective otitis externa, right ear (13) Pilonidal abscess Code(s): L05.01 - PILONIDAL CYST WITH ABSCESS (14) Suspected COVID-19 virus infection Code(s): R68.89 - OTHER GENERAL SYMPTOMS AND SIGNS (15) Swollen leg Code(s): M79.89 - OTHER SPECIFIED SOFT TISSUE DISORDERS (16) Tachycardia Code(s): R00.0 - TACHYCARDIA, UNSPECIFIED (17) Tooth pain Code(s): K08.8 - OTHER SPECIFIED DISORDERS OF TEETH AND SUPPOR * DO NOT USE * (18) URI (upper respiratory infection) Code(s): J06.9 - ACUTE UPPER RESPIRATORY INFECTION, UNSPECIFIED Qualifiers: URI type: unspecified viral URI Qualified Code(s): J06.9 - Acute upper respiratory infection, unspecified (19) Varicose veins Code(s): I86.8 - VARICOSE VEINS OF OTHER SPECIFIED SITES Assessment/Plan Assessment/Plan HTN, asthma, morbid obesity,hepatosplenomegaly, fatty liver, sleep apnea (was on ?CPAP at 9 yrs old, but stopped using it many years ago; excessive snoring and "stopped breathing while asleep" diminished markedly when he lost 200 lbs); recent admission for asthma flare 2/2 confirmed COVID infection, presenting to ED with worsening SOB. positive TNI to 1.75 max; low CKMB relative index. Elevated LFTs. Plan; Agree with ASA Lovonox AC Azithromycin/Cefriaxone Reported COVID positive on previous admission; negative this admission. Multiple cardiac risks, with elevated TNI: for cardiac w/u (ECHO for LVEF, wall motion, valve status; stress MIBI) when stable and COVID pnemonitis resolves. started atorvastatin 80 mg daily(elevated lipid profile and TNIs). F/u BP serially. Avoid beta blockers (hx asthma); caution with ACEI or ARB (elevated potassium); consider amlodipine (though BP now appears better- controlled). Sleep apnea: f/u with PMD (Dr. 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 Pulmonary: bilateral interstial infiltrates; s/p COVID-19; f/u with impregnating tank operator.
[2020-01-15 10:37] LABS: ANISOCYTOSIS 2+; MACROCYTOSIS 0; OVALOCYTE 1+; PLATELET ESTIMATE NORMAL
[2020-01-15] MEDS ORDERED: cefTRIAXone SODIUM 1 GM VIAL ONE (11:02)
[2020-01-15] MEDS ORDERED: DEXTROSE 5%-WATER - 50 ML IVPB ONE (11:02)
[2020-01-15] MEDS ORDERED: PT OWN MED DRAWER 7, Y5N ONE (11:06)
[2020-01-15] MEDS: ZINC SULFATE 220 MG CAPSULE (FP) PO SCH ×2 (11:08→21:24)
[2020-01-15] MEDS: CEFTRIAXONE 1 GM in DEXTROSE 5%-WATER - 50 ML IVPB SCH (11:08)
[2020-01-15] MEDS: ASPIRIN 81 MG CHEWABLE TABLETS PO SCH (11:08)
[2020-01-15] MEDS: ASCORBIC ACID 1,000 MG TABLET PO SCH ×2 (11:09→21:24)
--- NOTE | 2020-01-15 11:24 | PN ---
Progress Note, Physician History of Present Illness: no ac distress on nasal o2 - Current Medication List Current Medications: Active Medications Acetaminophen (Tylenol -) 650 mg PO Q6H PRN PRN Reason: FEVER Last Admin: 01/12/20 03:29 Dose: 650 mg Documented by: Albuterol Sulfate (Ventolin Hfa Inhaler -) 2 puff IH Q4H PRN PRN Reason: SHORT OF BREATH/WHEEZING Last Admin: 01/11/20 09:48 Dose: 2 puff Documented by: Ascorbic Acid (Vitamin C) 1,000 mg PO BID [facility] Last Admin: 01/15/20 11:09 Dose: 1,000 mg Documented by: Aspirin (Asa -) 81 mg PO DAILY [facility] Last Admin: 01/15/20 11:08 Dose: 81 mg Documented by: Atorvastatin Calcium (Lipitor -) 80 mg PO HS [facility] Last Admin: 01/14/20 22:55 Dose: 80 mg Documented by: Enoxaparin Sodium 100 mg/ (Enoxaparin Sodium 80 mg) 180 mg SQ BID [facility] Last Admin: 01/14/20 22:55 Dose: 180 mg Documented by: Ceftriaxone Sodium 1 gm/ (Dextrose) 50 mls @ 100 mls/hr IVPB DAILY [facility]; Protocol Last Admin: 01/15/20 11:08 Dose: 100 mls/hr Documented by: Zinc Sulfate (Orazinc -) 220 mg PO BID [facility] Last Admin: 01/15/20 11:08 Dose: 220 mg Documented by: - Objective Vital Signs: Vital Signs Temperature 98.3 F 01/15/20 09:00 Pulse Rate 88 01/15/20 09:00 Respiratory Rate 20 01/15/20 09:00 Blood Pressure 142/76 01/15/20 09:00 O2 Sat by Pulse Oximetry (%) 96 01/15/20 06:14 Constitutional: Yes: No Distress, Calm, Obese Cardiovascular: Yes: Regular Rate and Rhythm Respiratory: Yes: Regular, On Nasal O2, Poor Air Entry Gastrointestinal: Yes: Normal Bowel Sounds, Soft Musculoskeletal: Yes: WNL Extremities: Yes: WNL Neurological: Yes: Alert, Oriented Psychiatric: Yes: Alert, Oriented Labs: CBC, BMP 01/15/20 05:50 01/15/20 05:50 INR, PTT INR 1.35 (0.83-1.09) H 01/09/20 13:00 Assessment/Plan Problem List - Problems (1) Asthma attack Code(s): J45.901 - UNSPECIFIED ASTHMA WITH (ACUTE) EXACERBATION (2) Asthma exacerbation Code(s): J45.901 - UNSPECIFIED ASTHMA WITH (ACUTE) EXACERBATION (3) Bronchitis Code(s): J40 - BRONCHITIS, NOT SPECIFIED ACUTE OR CHRONIC (4) COVID-19 Code(s): U07.1 - COVID POSITIVE (6) Cough Code(s): R05 - COUGH (7) Diabetes Code(s): E11.9 - TYPE 2 DIABETES MELLITUS WITHOUT COMPLICATIONS (8) Fever Code(s): R50.9 - FEVER, UNSPECIFIED (9) HTN (hypertension) Code(s): I10 - ESSENTIAL (PRIMARY) HYPERTENSION (10) Morbid obesity Code(s): E66.01 - MORBID (SEVERE) OBESITY DUE TO EXCESS CALORIES (11) Morbid obesity Code(s): E66.01 - MORBID (SEVERE) OBESITY DUE TO EXCESS CALORIES (13) Pilonidal abscess Code(s): L05.01 - PILONIDAL CYST WITH ABSCESS plan continue current mgmt resp support close watch rest as per the team
[2020-01-15] MEDS: ENOXAPARIN 100 MG, ENOXAPARIN 80 MG SQ SCH ×2 (13:27→21:26)
[2020-01-15] MEDS: ATORVASTATIN CA 80 MG TABLET (FP) PO SCH (21:24)
--- NOTE | 2020-01-15 21:42 | PN ---
Progress Note, Physician History of Present Illness: Pt sitting in chair and is SOB - Current Medication List Current Medications: Active Medications Acetaminophen (Tylenol -) 650 mg PO Q6H PRN PRN Reason: FEVER Last Admin: 01/12/20 03:29 Dose: 650 mg Documented by: Albuterol Sulfate (Ventolin Hfa Inhaler -) 2 puff IH Q4H PRN PRN Reason: SHORT OF BREATH/WHEEZING Last Admin: 01/11/20 09:48 Dose: 2 puff Documented by: Ascorbic Acid (Vitamin C) 1,000 mg PO BID [facility] Last Admin: 01/15/20 21:24 Dose: 1,000 mg Documented by: Aspirin (Asa -) 81 mg PO DAILY [facility] Last Admin: 01/15/20 11:08 Dose: 81 mg Documented by: Atorvastatin Calcium (Lipitor -) 80 mg PO HS [facility] Last Admin: 01/15/20 21:24 Dose: 80 mg Documented by: Enoxaparin Sodium 100 mg/ (Enoxaparin Sodium 80 mg) 180 mg SQ BID [facility] Last Admin: 01/15/20 21:26 Dose: 180 mg Documented by: Ceftriaxone Sodium 1 gm/ (Dextrose) 50 mls @ 100 mls/hr IVPB DAILY [facility]; Protocol Last Admin: 01/15/20 11:08 Dose: 100 mls/hr Documented by: Zinc Sulfate (Orazinc -) 220 mg PO BID [facility] Last Admin: 01/15/20 21:24 Dose: 220 mg Documented by: - Objective Vital Signs: Vital Signs Temperature 97.6 F 01/15/20 21:22 Pulse Rate 104 H 01/15/20 21:22 Respiratory Rate 20 01/15/20 21:22 Blood Pressure 126/86 01/15/20 21:22 O2 Sat by Pulse Oximetry (%) 97 01/15/20 10:00 Cardiovascular: Yes: Tachycardia Respiratory: Yes: Diminished Gastrointestinal: Yes: WNL, Normal Bowel Sounds, Soft, Abdomen, Obese Labs: CBC, BMP 01/15/20 05:50 01/15/20 05:50 INR, PTT INR 1.35 (0.83-1.09) H 01/09/20 13:00 Problem List - Problems (1) COVID-19 Assessment/Plan: Repeat CXR (01/12/20) still showed diffuse B/L infiltrates Cont IV ceftriaxone Cont albuterol/vit C/zinc Markers still elevated O2 sat 96% on 4L NC Code(s): U07.1 - COVID POSITIVE (2) Hypoxia Assessment/Plan: Due to COVID Code(s): R09.02 - HYPOXEMIA (3) Elevated troponin Assessment/Plan: As per cardio Further w/u once COVID resolved Code(s): R79.89 - OTHER SPECIFIED ABNORMAL FINDINGS OF BLOOD CHEMISTRY (4) HTN (hypertension) Assessment/Plan: BP stable Code(s): I10 - ESSENTIAL (PRIMARY) HYPERTENSION (5) Morbid obesity Code(s): E66.01 - MORBID (SEVERE) OBESITY DUE TO EXCESS CALORIES
[2020-01-16 07:13] LABS: BASO % 0.5 % (0-2.0); EOS % 0.1 % (0-4.5); HEMATOCRIT 36.4 % (35.4-49); HEMOGLOBIN 11.9 GM/dL (11.7-16.9); LYMPH % 19.7 % (8-40); MCH 27.2 pg (25.7-33.7); MCHC 32.6 g/dl (32.0-35.9); MEAN CELL VOLUME 83.2 fl (80-96); MEAN PLT VOLUME 8.2 fl (7.5-11.1); MONO % 9.2 % (3.8-10.2); NEUT % 70.5 % (42.8-82.8); PLATELET COUNT 408 K/MM3 (134-434); RBC 4.38 M/mm3 (4.00-5.60); RDW 16.1 % (11.9-15.9); WHITE BLOOD COUNT 9.2 K/mm3 (4.0-10.0)
[2020-01-16 07:28] LABS: ALBUMIN 2.6 g/dl (3.4-5.0); BILIRUBIN,TOTAL 0.3 mg/dL (0.2-1); BLOOD UREA NITROGEN 11.3 mg/dL (7-18); CALCIUM 8.3 mg/dL (8.5-10.1); CREATININE 0.8 mg/dL (0.55-1.3); POTASSIUM 4.5 mmol/L (3.5-5.1); TOT PROT 6.1 g/dl (6.4-8.2)
[2020-01-16] MEDS ORDERED: cefTRIAXone SODIUM 1 GM VIAL ONE (08:47)
[2020-01-16] MEDS ORDERED: DEXTROSE 5%-WATER - 50 ML IVPB ONE (08:48)
[2020-01-16] MEDS: ASPIRIN 81 MG CHEWABLE TABLETS PO SCH (09:04)
[2020-01-16] MEDS: ASCORBIC ACID 1,000 MG TABLET PO SCH ×2 (09:04→22:01)
[2020-01-16] MEDS: CEFTRIAXONE 1 GM in DEXTROSE 5%-WATER - 50 ML IVPB SCH (09:04)
[2020-01-16] MEDS: ZINC SULFATE 220 MG CAPSULE (FP) PO SCH ×2 (09:04→22:01)
--- NOTE | 2020-01-16 10:32 | PN ---
Progress Note, Physician History of Present Illness: improving able to move around - Current Medication List Current Medications: Active Medications Acetaminophen (Tylenol -) 650 mg PO Q6H PRN PRN Reason: FEVER Last Admin: 01/12/20 03:29 Dose: 650 mg Documented by: Albuterol Sulfate (Ventolin Hfa Inhaler -) 2 puff IH Q4H PRN PRN Reason: SHORT OF BREATH/WHEEZING Last Admin: 01/11/20 09:48 Dose: 2 puff Documented by: Ascorbic Acid (Vitamin C) 1,000 mg PO BID [facility] Last Admin: 01/16/20 09:04 Dose: 1,000 mg Documented by: Aspirin (Asa -) 81 mg PO DAILY [facility] Last Admin: 01/16/20 09:04 Dose: 81 mg Documented by: Atorvastatin Calcium (Lipitor -) 80 mg PO HS [facility] Last Admin: 01/15/20 21:24 Dose: 80 mg Documented by: Enoxaparin Sodium 100 mg/ (Enoxaparin Sodium 80 mg) 180 mg SQ BID [facility] Last Admin: 01/15/20 21:26 Dose: 180 mg Documented by: Ceftriaxone Sodium 1 gm/ (Dextrose) 50 mls @ 100 mls/hr IVPB DAILY [facility]; Protocol Last Admin: 01/16/20 09:04 Dose: 100 mls/hr Documented by: Zinc Sulfate (Orazinc -) 220 mg PO BID [facility] Last Admin: 01/16/20 09:04 Dose: 220 mg Documented by: - Objective Vital Signs: Vital Signs Temperature 97.9 F 01/16/20 06:00 Pulse Rate 95 H 01/16/20 06:00 Respiratory Rate 18 01/16/20 06:00 Blood Pressure 140/76 01/16/20 06:00 O2 Sat by Pulse Oximetry (%) 97 01/15/20 21:00 Constitutional: Yes: No Distress, Calm, Obese Eyes: Yes: Conjunctiva Clear HENT: Yes: Atraumatic, Normocephalic Cardiovascular: Yes: Regular Rate and Rhythm Respiratory: Yes: Regular, Poor Air Entry Gastrointestinal: Yes: Normal Bowel Sounds, Soft Musculoskeletal: Yes: WNL Extremities: Yes: WNL Neurological: Yes: Alert, Oriented Psychiatric: Yes: Alert, Oriented Labs: CBC, BMP 01/16/20 05:20 01/16/20 05:20 INR, PTT INR 1.35 (0.83-1.09) H 01/09/20 13:00 Assessment/Plan Problem List - Problems (1) Asthma attack Code(s): J45.901 - UNSPECIFIED ASTHMA WITH (ACUTE) EXACERBATION (2) Asthma exacerbation Code(s): J45.901 - UNSPECIFIED ASTHMA WITH (ACUTE) EXACERBATION (3) Bronchitis Code(s): J40 - BRONCHITIS, NOT SPECIFIED ACUTE OR CHRONIC (4) COVID-19 Code(s): U07.1 - COVID POSITIVE (6) Cough Code(s): R05 - COUGH (7) Diabetes Code(s): E11.9 - TYPE 2 DIABETES MELLITUS WITHOUT COMPLICATIONS (8) Fever Code(s): R50.9 - FEVER, UNSPECIFIED (9) HTN (hypertension) Code(s): I10 - ESSENTIAL (PRIMARY) HYPERTENSION (10) Morbid obesity Code(s): E66.01 - MORBID (SEVERE) OBESITY DUE TO EXCESS CALORIES (11) Morbid obesity Code(s): E66.01 - MORBID (SEVERE) OBESITY DUE TO EXCESS CALORIES (13) Pilonidal abscess Code(s): L05.01 - PILONIDAL CYST WITH ABSCESS plan continue current mgmt resp support close watch rest as per the team consider weaning off the oxygen and monitoring stopped ceftriaxone
--- NOTE | 2020-01-16 11:29 | PN ---
Progress Note, Physician Chief Complaint: Pt A&Ox3; feeling much better. Able to walk to bathroom and around room without dyspnea. History of Present Illness: 29 yr old man with h/o confirmed COVID infection with asthma flareup ? 11/09 HTN, morbid obesity (weighed over 400 lbs; lost 200 lbs in a year while eating " baby food" and anticipating gastric bypass surgery, which ultimately was not done; became depressed, and regained weight to present 398 lbs);depression, hepatosplenomegaly, fatty liver, presenting to ED with worsening SOB. Pt reports that over the past few days, he has been getting more short of breath. He used his albuterol MDI with no relief. Pt also notes that he has been having worsening swelling of both lower extremities. This was reported on his prior admission but acutely worsened last night. Pt denies F/C. - Current Medication List Current Medications: Active Medications Acetaminophen (Tylenol -) 650 mg PO Q6H PRN PRN Reason: FEVER Last Admin: 01/12/20 03:29 Dose: 650 mg Documented by: Albuterol Sulfate (Ventolin Hfa Inhaler -) 2 puff IH Q4H PRN PRN Reason: SHORT OF BREATH/WHEEZING Last Admin: 01/11/20 09:48 Dose: 2 puff Documented by: Ascorbic Acid (Vitamin C) 1,000 mg PO BID [facility] Last Admin: 01/16/20 09:04 Dose: 1,000 mg Documented by: Aspirin (Asa -) 81 mg PO DAILY [facility] Last Admin: 01/16/20 09:04 Dose: 81 mg Documented by: Atorvastatin Calcium (Lipitor -) 80 mg PO HS [facility] Last Admin: 01/15/20 21:24 Dose: 80 mg Documented by: Enoxaparin Sodium 100 mg/ (Enoxaparin Sodium 80 mg) 180 mg SQ BID [facility] Last Admin: 01/15/20 21:26 Dose: 180 mg Documented by: Zinc Sulfate (Orazinc -) 220 mg PO BID [facility] Last Admin: 01/16/20 09:04 Dose: 220 mg Documented by: - Objective Vital Signs: Vital Signs Temperature 97.9 F 01/16/20 06:00 Pulse Rate 95 H 01/16/20 06:00 Respiratory Rate 18 01/16/20 06:00 Blood Pressure 140/76 01/16/20 06:00 O2 Sat by Pulse Oximetry (%) 97 01/15/20 21:00 Constitutional: Yes: Calm, Obese Eyes: Yes: WNL HENT: Yes: WNL Neck: Yes: WNL Cardiovascular: Yes: S1, S2 Labs: CBC, BMP 01/16/20 05:20 01/16/20 05:20 INR, PTT INR 1.35 (0.83-1.09) H 01/09/20 13:00 Assessment/Plan HTN, asthma, morbid obesity,hepatosplenomegaly, fatty liver, sleep apnea (was on ?CPAP at 9 yrs old, but stopped using it many years ago; excessive snoring and "stopped breathing while asleep" diminished markedly when he lost 200 lbs); recent admission for asthma flare 2/2 confirmed COVID infection, presenting to ED with worsening SOB. positive TNI to 1.75 max; low CKMB relative index. Elevated LFTs. Plan; Agree with ASA Lovonox AC Azithromycin/Cefriaxone Reported COVID positive outpatient Multiple cardiac risks, with elevated TNI (though CK relative index is low): for cardiac w/u (ECHO for LVEF, wall motion, valve status; stress MIBI) when stable and COVID pnemonitis resolves. Multiple causes of demand ischemia, including respiratory compromise and sepsis, CHF, OSAS. started atorvastatin 80 mg daily(elevated lipid profile and TNIs). F/u BP serially. Avoid beta blockers (hx asthma); caution with ACEI or ARB (elevated potassium); consider amlodipine (though BP now appears better- controlled). HGBA1c. Discontinue telemetry. Sleep apnea: f/u with PMD (Dr. Genaro Marte) and pickle maker, if workup not started this admission (sleep study). Pulmonary: bilateral interstitial infiltrates; s/p COVID-19; f/u with pickle maker.
[2020-01-16 11:31] LABS: ANISOCYTOSIS 0; MACROCYTOSIS 0; PLATELET ESTIMATE NORMAL
[2020-01-16] MEDS: ENOXAPARIN 100 MG, ENOXAPARIN 80 MG SQ SCH ×2 (12:29→22:01)
--- NOTE | 2020-01-16 20:41 | PN ---
Progress Note, Physician History of Present Illness: Pt trying to ambulate around room - Current Medication List Current Medications: Active Medications Acetaminophen (Tylenol -) 650 mg PO Q6H PRN PRN Reason: FEVER Last Admin: 01/12/20 03:29 Dose: 650 mg Documented by: Albuterol Sulfate (Ventolin Hfa Inhaler -) 2 puff IH Q4H PRN PRN Reason: SHORT OF BREATH/WHEEZING Last Admin: 01/11/20 09:48 Dose: 2 puff Documented by: Ascorbic Acid (Vitamin C) 1,000 mg PO BID [facility] Last Admin: 01/16/20 09:04 Dose: 1,000 mg Documented by: Aspirin (Asa -) 81 mg PO DAILY [facility] Last Admin: 01/16/20 09:04 Dose: 81 mg Documented by: Atorvastatin Calcium (Lipitor -) 80 mg PO HS [facility] Last Admin: 01/15/20 21:24 Dose: 80 mg Documented by: Enoxaparin Sodium 100 mg/ (Enoxaparin Sodium 80 mg) 180 mg SQ BID [facility] Last Admin: 01/16/20 12:29 Dose: 180 mg Documented by: Zinc Sulfate (Orazinc -) 220 mg PO BID [facility] Last Admin: 01/16/20 09:04 Dose: 220 mg Documented by: - Objective Vital Signs: Vital Signs Temperature 97.3 F L 01/16/20 18:00 Pulse Rate 104 H 01/16/20 18:00 Respiratory Rate 20 01/16/20 18:00 Blood Pressure 141/89 01/16/20 18:00 O2 Sat by Pulse Oximetry (%) 98 01/16/20 09:00 Cardiovascular: Yes: Tachycardia Respiratory: Yes: Diminished Gastrointestinal: Yes: WNL, Normal Bowel Sounds, Soft, Abdomen, Obese Labs: CBC, BMP 01/16/20 05:20 01/16/20 05:20 INR, PTT INR 1.35 (0.83-1.09) H 01/09/20 13:00 Problem List - Problems (1) COVID-19 Assessment/Plan: Repeat CXR (01/12/20) still showed diffuse B/L infiltrates Pt still tachy Cont albuterol/vit C/zinc Markers still elevated Cont lovenox O2 sat 96% on 4L NC Repeat CXR in am Code(s): U07.1 - COVID POSITIVE (2) Hypoxia Assessment/Plan: Due to COVID Code(s): R09.02 - HYPOXEMIA (3) Elevated troponin Assessment/Plan: As per cardio Further w/u once COVID resolved Code(s): R79.89 - OTHER SPECIFIED ABNORMAL FINDINGS OF BLOOD CHEMISTRY (4) HTN (hypertension) Assessment/Plan: BP stable Code(s): I10 - ESSENTIAL (PRIMARY) HYPERTENSION (5) Morbid obesity Code(s): E66.01 - MORBID (SEVERE) OBESITY DUE TO EXCESS CALORIES
[2020-01-16] MEDS ORDERED: ENOXAPARIN NA (PORCINE) 80 MG/0.8 ML DISP.SYRIN SQ ONE ×2 (21:42→21:43)
[2020-01-16] MEDS ORDERED: ENOXAPARIN NA (PORCINE) 100 MG/1 ML DISP.SYRIN SQ ONE ×2 (21:42→21:43)
[2020-01-16] MEDS ORDERED: PT OWN MED DRAWER 7, Y5N ONE (21:42)
[2020-01-16] MEDS: ATORVASTATIN CA 80 MG TABLET (FP) PO SCH (22:01)
[2020-01-17 07:35] LABS: BASO % 0.6 % (0-2.0); EOS % 0.1 % (0-4.5); HEMATOCRIT 37.4 % (35.4-49); HEMOGLOBIN 12.3 GM/dL (11.7-16.9); MCH 27.2 pg (25.7-33.7); MCHC 32.8 g/dl (32.0-35.9); MEAN CELL VOLUME 82.7 fl (80-96); MEAN PLT VOLUME 8.1 fl (7.5-11.1); MONO % 8.2 % (3.8-10.2); NEUT % 68.1 % (42.8-82.8); PLATELET COUNT 381 K/MM3 (134-434); RBC 4.52 M/mm3 (4.00-5.60); RDW 16.6 % (11.9-15.9); WHITE BLOOD COUNT 9.3 K/mm3 (4.0-10.0)
[2020-01-17 08:18] LABS: ALBUMIN 2.6 g/dl (3.4-5.0); BILIRUBIN,TOTAL 0.4 mg/dL (0.2-1); BLOOD UREA NITROGEN 8.4 mg/dL (7-18); CALCIUM 8.8 mg/dL (8.5-10.1); CREATININE 0.7 mg/dL (0.55-1.3); POTASSIUM 4.6 mmol/L (3.5-5.1); TOT PROT 6.3 g/dl (6.4-8.2)
[2020-01-17] MEDS ORDERED: ENOXAPARIN NA (PORCINE) 80 MG/0.8 ML DISP.SYRIN SQ ONE ×2 (09:26→21:45)
[2020-01-17] MEDS ORDERED: ENOXAPARIN NA (PORCINE) 100 MG/1 ML DISP.SYRIN SQ ONE ×2 (09:26→21:45)
[2020-01-17] MEDS: ENOXAPARIN 100 MG, ENOXAPARIN 80 MG SQ SCH ×2 (09:57→21:50)
[2020-01-17] MEDS: ASCORBIC ACID 1,000 MG TABLET PO SCH ×2 (09:58→21:50)
[2020-01-17] MEDS: ASPIRIN 81 MG CHEWABLE TABLETS PO SCH (09:58)
[2020-01-17] MEDS: ALBUTEROL SO4 HFA INHALER IH PRN (09:58)
[2020-01-17] MEDS: ZINC SULFATE 220 MG CAPSULE (FP) PO SCH ×2 (09:58→21:50)
[2020-01-17 10:20] LABS: ANISOCYTOSIS 2+; MACROCYTOSIS 0; PLATELET ESTIMATE NORMAL
--- NOTE | 2020-01-17 11:12 | PN ---
Progress Note, Physician History of Present Illness: feels better able to walk now without sob - Current Medication List Current Medications: Active Medications Acetaminophen (Tylenol -) 650 mg PO Q6H PRN PRN Reason: FEVER Last Admin: 01/12/20 03:29 Dose: 650 mg Documented by: Albuterol Sulfate (Ventolin Hfa Inhaler -) 2 puff IH Q4H PRN PRN Reason: SHORT OF BREATH/WHEEZING Last Admin: 01/17/20 09:58 Dose: 2 puff Documented by: Ascorbic Acid (Vitamin C) 1,000 mg PO BID [facility] Last Admin: 01/17/20 09:58 Dose: 1,000 mg Documented by: Aspirin (Asa -) 81 mg PO DAILY [facility] Last Admin: 01/17/20 09:58 Dose: 81 mg Documented by: Atorvastatin Calcium (Lipitor -) 80 mg PO HS [facility] Last Admin: 01/16/20 22:01 Dose: 80 mg Documented by: Enoxaparin Sodium 100 mg/ (Enoxaparin Sodium 80 mg) 180 mg SQ BID [facility] Last Admin: 01/17/20 09:57 Dose: 180 mg Documented by: Zinc Sulfate (Orazinc -) 220 mg PO BID [facility] Last Admin: 01/17/20 09:58 Dose: 220 mg Documented by: - Objective Vital Signs: Vital Signs Temperature 97.7 F 01/17/20 06:00 Pulse Rate 94 H 01/17/20 06:00 Respiratory Rate 16 01/17/20 06:00 Blood Pressure 123/61 01/17/20 06:00 O2 Sat by Pulse Oximetry (%) 97 01/16/20 20:40 Constitutional: Yes: No Distress, Obese, Other Eyes: Yes: Conjunctiva Clear HENT: Yes: Atraumatic, Normocephalic Cardiovascular: Yes: Regular Rate and Rhythm Respiratory: Yes: Regular, On Nasal O2, Poor Air Entry Gastrointestinal: Yes: Normal Bowel Sounds, Soft Musculoskeletal: Yes: WNL Extremities: Yes: WNL Neurological: Yes: Alert, Oriented Psychiatric: Yes: Alert, Oriented Labs: CBC, BMP 01/17/20 06:25 01/17/20 06:25 INR, PTT INR 1.35 (0.83-1.09) H 01/09/20 13:00 Assessment/Plan Problem List - Problems (1) Asthma attack Code(s): J45.901 - UNSPECIFIED ASTHMA WITH (ACUTE) EXACERBATION (2) Asthma exacerbation Code(s): J45.901 - UNSPECIFIED ASTHMA WITH (ACUTE) EXACERBATION (3) Bronchitis Code(s): J40 - BRONCHITIS, NOT SPECIFIED ACUTE OR CHRONIC (4) COVID-19 Code(s): U07.1 - COVID POSITIVE (6) Cough Code(s): R05 - COUGH (7) Diabetes Code(s): E11.9 - TYPE 2 DIABETES MELLITUS WITHOUT COMPLICATIONS (8) Fever Code(s): R50.9 - FEVER, UNSPECIFIED (9) HTN (hypertension) Code(s): I10 - ESSENTIAL (PRIMARY) HYPERTENSION (10) Morbid obesity Code(s): E66.01 - MORBID (SEVERE) OBESITY DUE TO EXCESS CALORIES (11) Morbid obesity Code(s): E66.01 - MORBID (SEVERE) OBESITY DUE TO EXCESS CALORIES (13) Pilonidal abscess Code(s): L05.01 - PILONIDAL CYST WITH ABSCESS plan continue current mgmt resp support close watch physio
--- NOTE | 2020-01-17 16:57 | PN ---
Progress Note, Physician History of Present Illness: 29M with h/o HTN, asthma, morbid obesity, recent admission for asthma flare 2/2 confirmed COVID infection, presenting to ED with worsening SOB. Pt reports that over the past few days, he has been getting more short of breath. He used his albuterol MDI with no relief. Pt also notes that he has been having worsening swelling of both lower extremities. This was reported on his prior admission but acutely worsened last night. Pt denies F/C. - Current Medication List Current Medications: Active Medications Acetaminophen (Tylenol -) 650 mg PO Q6H PRN PRN Reason: FEVER Last Admin: 01/12/20 03:29 Dose: 650 mg Documented by: Albuterol Sulfate (Ventolin Hfa Inhaler -) 2 puff IH Q4H PRN PRN Reason: SHORT OF BREATH/WHEEZING Last Admin: 01/17/20 09:58 Dose: 2 puff Documented by: Ascorbic Acid (Vitamin C) 1,000 mg PO BID [facility] Last Admin: 01/17/20 09:58 Dose: 1,000 mg Documented by: Aspirin (Asa -) 81 mg PO DAILY [facility] Last Admin: 01/17/20 09:58 Dose: 81 mg Documented by: Atorvastatin Calcium (Lipitor -) 80 mg PO HS [facility] Last Admin: 01/16/20 22:01 Dose: 80 mg Documented by: Enoxaparin Sodium 100 mg/ (Enoxaparin Sodium 80 mg) 180 mg SQ BID [facility] Last Admin: 01/17/20 09:57 Dose: 180 mg Documented by: Zinc Sulfate (Orazinc -) 220 mg PO BID [facility] Last Admin: 01/17/20 09:58 Dose: 220 mg Documented by: - Objective Vital Signs: Vital Signs Temperature 98.6 F 01/17/20 14:00 Pulse Rate 103 H 01/17/20 14:00 Respiratory Rate 16 01/17/20 14:00 Blood Pressure 116/78 01/17/20 14:00 O2 Sat by Pulse Oximetry (%) 97 01/17/20 10:00 Eyes: Yes: WNL, Conjunctiva Clear, EOM Intact HENT: Yes: WNL, Atraumatic, Normocephalic Neck: Yes: WNL, Supple, Trachea Midline Cardiovascular: Yes: WNL, Regular Rate and Rhythm Respiratory: Yes: WNL, Regular, CTA Bilaterally Gastrointestinal: Yes: WNL, Normal Bowel Sounds Genitourinary: Yes: WNL Musculoskeletal: Yes: WNL Extremities: Yes: WNL Edema: No Integumentary: Yes: WNL Neurological: Yes: WNL, Alert, Oriented ...Motor Strength: WNL Psychiatric: Yes: WNL Labs: CBC, BMP 01/17/20 06:25 01/17/20 06:25 INR, PTT INR 1.35 (0.83-1.09) H 01/09/20 13:00 Problem List - Problems (1) Asthma attack Code(s): J45.901 - UNSPECIFIED ASTHMA WITH (ACUTE) EXACERBATION (2) Asthma exacerbation Code(s): J45.901 - UNSPECIFIED ASTHMA WITH (ACUTE) EXACERBATION (3) Bronchitis Code(s): J40 - BRONCHITIS, NOT SPECIFIED ACUTE OR CHRONIC (4) COVID-19 Code(s): U07.1 - COVID POSITIVE (5) Cellulitis Code(s): L03.90 - CELLULITIS, UNSPECIFIED (6) Cough Code(s): R05 - COUGH (7) Diabetes Code(s): E11.9 - TYPE 2 DIABETES MELLITUS WITHOUT COMPLICATIONS (8) Fever Code(s): R50.9 - FEVER, UNSPECIFIED (9) HTN (hypertension) Code(s): I10 - ESSENTIAL (PRIMARY) HYPERTENSION (10) Morbid obesity Code(s): E66.01 - MORBID (SEVERE) OBESITY DUE TO EXCESS CALORIES (11) Morbid obesity Code(s): E66.01 - MORBID (SEVERE) OBESITY DUE TO EXCESS CALORIES (12) Otitis externa Code(s): H60.90 - UNSPECIFIED OTITIS EXTERNA, UNSPECIFIED EAR Qualifiers: Otitis externa type: unspecified type Chronicity: acute Laterality: right Qualified Code(s): H60.501 - Unspecified acute noninfective otitis externa, right ear (13) Pilonidal abscess Code(s): L05.01 - PILONIDAL CYST WITH ABSCESS (14) Suspected COVID-19 virus infection Code(s): R68.89 - OTHER GENERAL SYMPTOMS AND SIGNS (15) Swollen leg Code(s): M79.89 - OTHER SPECIFIED SOFT TISSUE DISORDERS (16) Tachycardia Code(s): R00.0 - TACHYCARDIA, UNSPECIFIED (17) Tooth pain Code(s): K08.8 - OTHER SPECIFIED DISORDERS OF TEETH AND SUPPOR * DO NOT USE * (18) URI (upper respiratory infection) Code(s): J06.9 - ACUTE UPPER RESPIRATORY INFECTION, UNSPECIFIED Qualifiers: URI type: unspecified viral URI Qualified Code(s): J06.9 - Acute upper respiratory infection, unspecified (19) Varicose veins Code(s): I86.8 - VARICOSE VEINS OF OTHER SPECIFIED SITES Assessment/Plan HTN, asthma, morbid obesity,hepatosplenomegaly, fatty liver, sleep apnea (was on ?CPAP at 9 yrs old, but stopped using it many years ago; excessive snoring and "stopped breathing while asleep" diminished markedly when he lost 200 lbs); recent admission for asthma flare 2/2 confirmed COVID infection, presenting to ED with worsening SOB. positive TNI to 1.75 max; low CKMB relative index. Elevated LFTs. Plan; Agree with ASA Lovonox AC Azithromycin/Cefriaxone Reported COVID positive outpatient Multiple cardiac risks, with elevated TNI (though CK relative index is low): for cardiac w/u (ECHO for LVEF, wall motion, valve status; stress MIBI) when stable and COVID pnemonitis resolves. Multiple causes of demand ischemia, including respiratory compromise and sepsis, CHF, OSAS. started atorvastatin 80 mg daily(elevated lipid profile and TNIs). F/u BP serially. Avoid beta blockers (hx asthma); caution with ACEI or ARB (elevated potassium); consider amlodipine (though BP now appears better- controlled). HGBA1c. Discontinue telemetry. Sleep apnea: f/u with PMD (Dr. Genaro Marte) and cylinder batcher, if workup not started this admission (sleep study). Pulmonary: bilateral interstitial infiltrates; s/p COVID-19; f/u with pulmonolo gist.
[2020-01-17] MEDS: ATORVASTATIN CA 80 MG TABLET (FP) PO SCH (21:49)
--- NOTE | 2020-01-17 22:15 | PN ---
Progress Note, Physician - Current Medication List Current Medications: Active Medications Acetaminophen (Tylenol -) 650 mg PO Q6H PRN PRN Reason: FEVER Last Admin: 01/12/20 03:29 Dose: 650 mg Documented by: Albuterol Sulfate (Ventolin Hfa Inhaler -) 2 puff IH Q4H PRN PRN Reason: SHORT OF BREATH/WHEEZING Last Admin: 01/17/20 09:58 Dose: 2 puff Documented by: Ascorbic Acid (Vitamin C) 1,000 mg PO BID [facility] Last Admin: 01/17/20 21:50 Dose: 1,000 mg Documented by: Aspirin (Asa -) 81 mg PO DAILY [facility] Last Admin: 01/17/20 09:58 Dose: 81 mg Documented by: Atorvastatin Calcium (Lipitor -) 80 mg PO HS [facility] Last Admin: 01/17/20 21:49 Dose: 80 mg Documented by: Enoxaparin Sodium 100 mg/ (Enoxaparin Sodium 80 mg) 180 mg SQ BID [facility] Last Admin: 01/17/20 21:50 Dose: 180 mg Documented by: Zinc Sulfate (Orazinc -) 220 mg PO BID [facility] Last Admin: 01/17/20 21:50 Dose: 220 mg Documented by: - Objective Vital Signs: Vital Signs Temperature 98.2 F 01/17/20 18:00 Pulse Rate 108 H 01/17/20 18:00 Respiratory Rate 17 01/17/20 18:00 Blood Pressure 145/80 01/17/20 18:00 O2 Sat by Pulse Oximetry (%) 97 01/17/20 10:00 Labs: CBC, BMP 01/17/20 06:25 01/17/20 06:25 INR, PTT INR 1.35 (0.83-1.09) H 01/09/20 13:00 Problem List - Problems (1) COVID-19 Code(s): U07.1 - COVID POSITIVE (2) Hypoxia Code(s): R09.02 - HYPOXEMIA (3) Elevated troponin Code(s): R79.89 - OTHER SPECIFIED ABNORMAL FINDINGS OF BLOOD CHEMISTRY (4) HTN (hypertension) Code(s): I10 - ESSENTIAL (PRIMARY) HYPERTENSION (5) Morbid obesity Code(s): E66.01 - MORBID (SEVERE) OBESITY DUE TO EXCESS CALORIES
[2020-01-18] MEDS ORDERED: ENOXAPARIN NA (PORCINE) 80 MG/0.8 ML DISP.SYRIN SQ ONE ×2 (08:23→21:29)
[2020-01-18] MEDS ORDERED: ENOXAPARIN NA (PORCINE) 100 MG/1 ML DISP.SYRIN SQ ONE ×2 (08:23→21:29)
[2020-01-18] MEDS: ALBUTEROL SO4 HFA INHALER IH PRN (09:04)
[2020-01-18] MEDS: ASPIRIN 81 MG CHEWABLE TABLETS PO SCH (09:04)
[2020-01-18] MEDS: ASCORBIC ACID 1,000 MG TABLET PO SCH ×2 (09:04→21:40)
[2020-01-18] MEDS: ENOXAPARIN 100 MG, ENOXAPARIN 80 MG SQ SCH ×2 (09:04→21:40)
[2020-01-18] MEDS: ZINC SULFATE 220 MG CAPSULE (FP) PO SCH ×2 (09:04→21:40)
--- NOTE | 2020-01-18 10:31 | PN ---
Progress Note, Physician - Current Medication List Current Medications: Active Medications Acetaminophen (Tylenol -) 650 mg PO Q6H PRN PRN Reason: FEVER Last Admin: 01/12/20 03:29 Dose: 650 mg Documented by: Albuterol Sulfate (Ventolin Hfa Inhaler -) 2 puff IH Q4H PRN PRN Reason: SHORT OF BREATH/WHEEZING Last Admin: 01/18/20 09:04 Dose: 2 puff Documented by: Ascorbic Acid (Vitamin C) 1,000 mg PO BID [facility] Last Admin: 01/18/20 09:04 Dose: 1,000 mg Documented by: Aspirin (Asa -) 81 mg PO DAILY [facility] Last Admin: 01/18/20 09:04 Dose: 81 mg Documented by: Atorvastatin Calcium (Lipitor -) 80 mg PO HS [facility] Last Admin: 01/17/20 21:49 Dose: 80 mg Documented by: Enoxaparin Sodium 100 mg/ (Enoxaparin Sodium 80 mg) 180 mg SQ BID [facility] Last Admin: 01/18/20 09:04 Dose: 180 mg Documented by: Zinc Sulfate (Orazinc -) 220 mg PO BID [facility] Last Admin: 01/18/20 09:04 Dose: 220 mg Documented by: - Objective Vital Signs: Vital Signs Temperature 98.3 F 01/18/20 09:00 Pulse Rate 106 H 01/18/20 09:00 Respiratory Rate 16 01/18/20 09:00 Blood Pressure 125/81 01/18/20 09:00 O2 Sat by Pulse Oximetry (%) 96 01/18/20 09:00 Labs: CBC, BMP 01/17/20 06:25 01/17/20 06:25 INR, PTT INR 1.35 (0.83-1.09) H 01/09/20 13:00
--- NOTE | 2020-01-18 21:36 | PN ---
Progress Note, Physician History of Present Illness: No new complaints - Current Medication List Current Medications: Active Medications Acetaminophen (Tylenol -) 650 mg PO Q6H PRN PRN Reason: FEVER Last Admin: 01/12/20 03:29 Dose: 650 mg Documented by: Albuterol Sulfate (Ventolin Hfa Inhaler -) 2 puff IH Q4H PRN PRN Reason: SHORT OF BREATH/WHEEZING Last Admin: 01/18/20 09:04 Dose: 2 puff Documented by: Ascorbic Acid (Vitamin C) 1,000 mg PO BID [facility] Last Admin: 01/18/20 09:04 Dose: 1,000 mg Documented by: Aspirin (Asa -) 81 mg PO DAILY [facility] Last Admin: 01/18/20 09:04 Dose: 81 mg Documented by: Atorvastatin Calcium (Lipitor -) 80 mg PO HS [facility] Last Admin: 01/17/20 21:49 Dose: 80 mg Documented by: Enoxaparin Sodium 100 mg/ (Enoxaparin Sodium 80 mg) 180 mg SQ BID [facility] Last Admin: 01/18/20 09:04 Dose: 180 mg Documented by: Zinc Sulfate (Orazinc -) 220 mg PO BID [facility] Last Admin: 01/18/20 09:04 Dose: 220 mg Documented by: - Objective Vital Signs: Vital Signs Temperature 98.0 F 01/18/20 18:00 Pulse Rate 99 H 01/18/20 18:00 Respiratory Rate 18 01/18/20 18:00 Blood Pressure 119/65 01/18/20 18:00 O2 Sat by Pulse Oximetry (%) 96 01/18/20 09:00 Cardiovascular: Yes: WNL, Regular Rate and Rhythm Respiratory: Yes: Diminished Gastrointestinal: Yes: WNL, Normal Bowel Sounds, Soft, Abdomen, Obese Labs: CBC, BMP 01/17/20 06:25 01/17/20 06:25 INR, PTT INR 1.35 (0.83-1.09) H 01/09/20 13:00 Problem List - Problems (1) COVID-19 Assessment/Plan: Repeat CXR (01/16/20) still showed diffuse B/L infiltrates and no change Pt still tachy Cont albuterol/vit C/zinc Markers still elevated but very slowly decreasing Cont lovenox O2 sat 96% on Room air Code(s): U07.1 - COVID POSITIVE (2) Hypoxia Assessment/Plan: Due to COVID Code(s): R09.02 - HYPOXEMIA (3) Elevated troponin Assessment/Plan: As per cardio Further w/u once COVID resolved Code(s): R79.89 - OTHER SPECIFIED ABNORMAL FINDINGS OF BLOOD CHEMISTRY (4) HTN (hypertension) Assessment/Plan: BP stable Code(s): I10 - ESSENTIAL (PRIMARY) HYPERTENSION (5) Morbid obesity Code(s): E66.01 - MORBID (SEVERE) OBESITY DUE TO EXCESS CALORIES
[2020-01-18] MEDS: ATORVASTATIN CA 80 MG TABLET (FP) PO SCH (21:40)
--- NOTE | 2020-01-19 05:25 | PN ---
Progress Note, Physician Chief Complaint: Pt A&Ox3; lying on right side; feels less SOB. History of Present Illness: 29 yr old man with h/o confirmed COVID infection with asthma flareup ? 11/09 HTN, morbid obesity (weighed over 400 lbs; lost 200 lbs in a year while eating "baby food" and anticipating gastric bypass surgery, which ultimately was not done; became depressed, and regained weight to present 398 lbs);depression, hepatosplenomegaly, fatty liver, presenting to ED with worsening SOB. Pt reports that over the past few days, he has been getting more short of breath. He used his albuterol MDI with no relief. Pt also notes that he has been having worsening swelling of both lower extremities. This was reported on his prior admission but acutely worsened last night. Pt denies F/C. - Current Medication List Current Medications: Active Medications Acetaminophen (Tylenol -) 650 mg PO Q6H PRN PRN Reason: FEVER Last Admin: 01/12/20 03:29 Dose: 650 mg Documented by: Albuterol Sulfate (Ventolin Hfa Inhaler -) 2 puff IH Q4H PRN PRN Reason: SHORT OF BREATH/WHEEZING Last Admin: 01/18/20 09:04 Dose: 2 puff Documented by: Ascorbic Acid (Vitamin C) 1,000 mg PO BID [facility] Last Admin: 01/18/20 21:40 Dose: 1,000 mg Documented by: Aspirin (Asa -) 81 mg PO DAILY [facility] Last Admin: 01/18/20 09:04 Dose: 81 mg Documented by: Atorvastatin Calcium (Lipitor -) 80 mg PO HS [facility] Last Admin: 01/18/20 21:40 Dose: 80 mg Documented by: Enoxaparin Sodium 100 mg/ (Enoxaparin Sodium 80 mg) 180 mg SQ BID [facility] Last Admin: 01/18/20 21:40 Dose: 180 mg Documented by: Zinc Sulfate (Orazinc -) 220 mg PO BID [facility] Last Admin: 01/18/20 21:40 Dose: 220 mg Documented by: - Objective Vital Signs: Vital Signs Temperature 97.7 F 01/18/20 22:00 Pulse Rate 118 H 01/18/20 22:00 Respiratory Rate 18 01/18/20 22:00 Blood Pressure 138/94 01/18/20 22:00 O2 Sat by Pulse Oximetry (%) 94 L 01/18/20 21:00 Constitutional: Yes: Calm, Obese Eyes: Yes: WNL HENT: Yes: WNL Neck: Yes: WNL Cardiovascular: Yes: Tachycardia, S1, S2, S4 Respiratory: Yes: Diminished Gastrointestinal: Yes: Abdomen, Obese ...Rectal Exam: Yes: Deferred Genitourinary: No: Anuria Labs: CBC, BMP 01/17/20 06:25 01/17/20 06:25 INR, PTT INR 1.35 (0.83-1.09) H 01/09/20 13:00 Assessment/Plan HTN, asthma, morbid obesity,hepatosplenomegaly, fatty liver, sleep apnea (was on ?CPAP at 9 yrs old, but stopped using it many years ago; excessive snoring and "stopped breathing while asleep" diminished markedly when he lost 200 lbs); recent admission for asthma flare 2/2 confirmed COVID infection, presenting to ED with worsening SOB. positive TNI to 1.75 max; low CKMB relative index. Elevated LFTs. Plan; Agree with ASA Lovonox AC Azithromycin/Cefriaxone Reported COVID positive outpatient Multiple cardiac risks, with elevated TNI (though CK relative index is low): for cardiac w/u (ECHO for LVEF, wall motion, valve status; stress MIBI) when stable and COVID pnemonitis resolves. F/u repeat COVID test. Multiple causes of demand ischemia, including respiratory compromise and sepsis, CHF, OSAS. started atorvastatin 80 mg daily(elevated lipid profile and TNIs). F/u BP serially. Avoid beta blockers (hx asthma); caution with ACEI or ARB (elevated potassium); consider amlodipine (though BP now appears better- controlled). HGBA1c. Discontinue telemetry. Sleep apnea: f/u with PMD (Dr. Genaro Marte) and rectifying attendant, if workup not started this admission (sleep study). Pulmonary: bilateral interstitial infiltrates; s/p COVID-19; f/u with rectifying attendant. Repeat COVID study.
[2020-01-19 07:55] LABS: BASO % 1.3 % (0-2.0); HEMATOCRIT 38.3 % (35.4-49); HEMOGLOBIN 12.6 GM/dL (11.7-16.9); MCH 27.2 pg (25.7-33.7); MCHC 32.8 g/dl (32.0-35.9); MEAN PLT VOLUME 8.9 fl (7.5-11.1); MONO % 8.3 % (3.8-10.2); NEUT % 66.4 % (42.8-82.8); PLATELET COUNT 376 K/MM3 (134-434); RBC 4.62 M/mm3 (4.00-5.60); RDW 16.9 % (11.9-15.9); WHITE BLOOD COUNT 11.1 K/mm3 (4.0-10.0)
[2020-01-19] MEDS ORDERED: ENOXAPARIN NA (PORCINE) 100 MG/1 ML DISP.SYRIN SQ ONE (08:16)
[2020-01-19] MEDS ORDERED: ENOXAPARIN NA (PORCINE) 80 MG/0.8 ML DISP.SYRIN SQ ONE (08:16)
[2020-01-19 08:17] LABS: BILIRUBIN,TOTAL 0.5 mg/dL (0.2-1); BLOOD UREA NITROGEN 9.2 mg/dL (7-18); CREATININE 0.8 mg/dL (0.55-1.3); POTASSIUM 4.5 mmol/L (3.5-5.1); TOT PROT 6.8 g/dl (6.4-8.2)
[2020-01-19] MEDS: ASCORBIC ACID 1,000 MG TABLET PO SCH (09:19)
[2020-01-19] MEDS: ZINC SULFATE 220 MG CAPSULE (FP) PO SCH (09:19)
[2020-01-19] MEDS: ASPIRIN 81 MG CHEWABLE TABLETS PO SCH (09:19)
[2020-01-19] MEDS: ENOXAPARIN 100 MG, ENOXAPARIN 80 MG SQ SCH (09:20)
--- NOTE | 2020-01-19 09:22 | PN ---
Progress Note, Physician History of Present Illness: 29M with h/o HTN, asthma, morbid obesity, recent admission for asthma flare 2/2 confirmed COVID infection, presenting to ED with worsening SOB. Pt reports that over the past few days, he has been getting more short of breath. He used his albuterol MDI with no relief. Pt also notes that he has been having worsening swelling of both lower extremities. This was reported on his prior admission but acutely worsened last night. Pt denies F/C. - Current Medication List Current Medications: Active Medications Acetaminophen (Tylenol -) 650 mg PO Q6H PRN PRN Reason: FEVER Last Admin: 01/12/20 03:29 Dose: 650 mg Documented by: Albuterol Sulfate (Ventolin Hfa Inhaler -) 2 puff IH Q4H PRN PRN Reason: SHORT OF BREATH/WHEEZING Last Admin: 01/18/20 09:04 Dose: 2 puff Documented by: Ascorbic Acid (Vitamin C) 1,000 mg PO BID [facility] Last Admin: 01/18/20 21:40 Dose: 1,000 mg Documented by: Aspirin (Asa -) 81 mg PO DAILY [facility] Last Admin: 01/18/20 09:04 Dose: 81 mg Documented by: Atorvastatin Calcium (Lipitor -) 80 mg PO HS [facility] Last Admin: 01/18/20 21:40 Dose: 80 mg Documented by: Enoxaparin Sodium 100 mg/ (Enoxaparin Sodium 80 mg) 180 mg SQ BID [facility] Last Admin: 01/18/20 21:40 Dose: 180 mg Documented by: Zinc Sulfate (Orazinc -) 220 mg PO BID [facility] Last Admin: 01/18/20 21:40 Dose: 220 mg Documented by: - Objective Vital Signs: Vital Signs Temperature 98.1 F 01/19/20 06:00 Pulse Rate 110 H 01/19/20 06:00 Respiratory Rate 19 01/19/20 06:00 Blood Pressure 122/88 01/19/20 06:00 O2 Sat by Pulse Oximetry (%) 94 L 01/18/20 21:00 Eyes: Yes: WNL, Conjunctiva Clear, EOM Intact HENT: Yes: WNL, Atraumatic, Normocephalic Neck: Yes: WNL, Supple, Trachea Midline Cardiovascular: Yes: WNL, Regular Rate and Rhythm Respiratory: Yes: WNL, Regular, CTA Bilaterally Gastrointestinal: Yes: WNL, Normal Bowel Sounds Genitourinary: Yes: WNL Musculoskeletal: Yes: WNL Extremities: Yes: WNL Edema: No Integumentary: Yes: WNL Neurological: Yes: WNL, Alert, Oriented ...Motor Strength: WNL Psychiatric: Yes: WNL Labs: CBC, BMP 01/19/20 06:00 01/19/20 06:00 INR, PTT INR 1.35 (0.83-1.09) H 01/09/20 13:00 Problem List - Problems (1) Asthma attack Code(s): J45.901 - UNSPECIFIED ASTHMA WITH (ACUTE) EXACERBATION (2) Asthma exacerbation Code(s): J45.901 - UNSPECIFIED ASTHMA WITH (ACUTE) EXACERBATION (3) Bronchitis Code(s): J40 - BRONCHITIS, NOT SPECIFIED ACUTE OR CHRONIC (4) COVID-19 Code(s): U07.1 - COVID POSITIVE (5) Cellulitis Code(s): L03.90 - CELLULITIS, UNSPECIFIED (6) Cough Code(s): R05 - COUGH (7) Diabetes Code(s): E11.9 - TYPE 2 DIABETES MELLITUS WITHOUT COMPLICATIONS (8) Fever Code(s): R50.9 - FEVER, UNSPECIFIED (9) HTN (hypertension) Code(s): I10 - ESSENTIAL (PRIMARY) HYPERTENSION (10) Morbid obesity Code(s): E66.01 - MORBID (SEVERE) OBESITY DUE TO EXCESS CALORIES (11) Morbid obesity Code(s): E66.01 - MORBID (SEVERE) OBESITY DUE TO EXCESS CALORIES (12) Otitis externa Code(s): H60.90 - UNSPECIFIED OTITIS EXTERNA, UNSPECIFIED EAR Qualifiers: Otitis externa type: unspecified type Chronicity: acute Laterality: right Qualified Code(s): H60.501 - Unspecified acute noninfective otitis externa, right ear (13) Pilonidal abscess Code(s): L05.01 - PILONIDAL CYST WITH ABSCESS (14) Suspected COVID-19 virus infection Code(s): R68.89 - OTHER GENERAL SYMPTOMS AND SIGNS (15) Swollen leg Code(s): M79.89 - OTHER SPECIFIED SOFT TISSUE DISORDERS (16) Tachycardia Code(s): R00.0 - TACHYCARDIA, UNSPECIFIED (17) Tooth pain Code(s): K08.8 - OTHER SPECIFIED DISORDERS OF TEETH AND SUPPOR * DO NOT USE * (18) URI (upper respiratory infection) Code(s): J06.9 - ACUTE UPPER RESPIRATORY INFECTION, UNSPECIFIED Qualifiers: URI type: unspecified viral URI Qualified Code(s): J06.9 - Acute upper respiratory infection, unspecified (19) Varicose veins Code(s): I86.8 - VARICOSE VEINS OF OTHER SPECIFIED SITES Assessment/Plan HTN, asthma, morbid obesity,hepatosplenomegaly, fatty liver, sleep apnea (was on ?CPAP at 9 yrs old, but stopped using it many years ago; excessive snoring and "stopped breathing while asleep" diminished markedly when he lost 200 lbs); recent admission for asthma flare 2/2 confirmed COVID infection, presenting to ED with worsening SOB. positive TNI to 1.75 max; low CKMB relative index. Elevated LFTs. Plan; Agree with ASA Lovonox AC Azithromycin/Cefriaxone Reported COVID positive outpatient Multiple cardiac risks, with elevated TNI (though CK relative index is low): for cardiac w/u (ECHO for LVEF, wall motion, valve status; stress MIBI) when stable and COVID pnemonitis resolves. F/u repeat COVID test. Multiple causes of demand ischemia, including respiratory compromise and sepsis, CHF, OSAS. started atorvastatin 80 mg daily(elevated lipid profile and TNIs). F/u BP serially. Avoid beta blockers (hx asthma); caution with ACEI or ARB (elevated potassium); consider amlodipine (though BP now appears better- controlled). HGBA1c. Discontinue telemetry. Sleep apnea: f/u with PMD (Dr. Genaro Marte) and [employer] bl[employer], if workup not started this admission (sleep study). Pulmonary: bilateral interstitial infiltrates; s/p COVID-19; f/u with [employer] bl[employer]. Repeat COVID study.
[2020-01-19 11:06] LABS: ANISOCYTOSIS 0; MACROCYTOSIS 0; PLATELET ESTIMATE NORMAL
[2020-01-19 14:13] VITALS: BP 124/74; PULSE 103; TEMP 97.4
== END 2020-01-19 16:38 | disposition home or self-care (01) | DRG 178 ==
LOC: JER 12:28 → JERBED 14:09 → J4S 01-11 01:34
PROVIDERS: ADMIT Internal Medicine; ATTEND Internal Medicine
DX: U07.1 COVID-19 (principal); J45.901 Unspecified asthma with (acute) exacerbation; Z68.43 Body mass index [BMI] 50.0-59.9, adult; I24.8 Other forms of acute ischemic heart disease; E66.01 Morbid (severe) obesity due to excess calories; I10 Essential (primary) hypertension; R09.02 Hypoxemia; J40 Bronchitis, not specified as acute or chronic; R00.0 Tachycardia, unspecified; K76.0 Fatty (change of) liver, not elsewhere classified; R79.89 Other specified abnormal findings of blood chemistry
CPT/HCPCS: 36415; 36600; 71045-TC-FY; 80053; 80061; 82248; 82550; 82553; 82728; 82803; 83036; 83605; 83615; 83721; 83880; 84443; 84484; 85025; 85379; 85610; 85730; 86140; 87040; 93005; 93010; 93970-TC; 99291; J0131; U0003

== ENCOUNTER 2022-01-30 15:37 | Emergency (ER) | payer OTHER ==
[2022-01-30 16:04] VITALS: BP 135/72; PULSE 139; TEMP 102.9; BMI 59.3
[2022-01-30] MEDS ORDERED: SODIUM CHLORIDE 0.9% 500 ML INFUS.BAG IV ONE (16:10)
[2022-01-30] MEDS ORDERED: ACETAMINOPHEN 1000 MG/100 ML BAG IVPB ONE (16:11)
[2022-01-30] MEDS ORDERED: ACETAMINOPHEN INJECTION 100 ML IVPB ONE (17:01)
[2022-01-30 17:03] LABS: BASO % 0.8 % (0-2.0); EOS % 2.3 % (0-4.5); HEMATOCRIT 43.8 % (35.4-49); HEMOGLOBIN 14.4 GM/dL (11.7-16.9); LYMPH % 7.9 % (8-40); MCHC 32.9 g/dl (32.0-35.9); MEAN PLT VOLUME 8.5 fl (7.5-11.1); PLATELET COUNT 222 10^3/uL (134-434); RBC 5.34 M/mm3 (4.00-5.60); RDW 15.4 % (11.9-15.9); WHITE BLOOD COUNT 6.8 K/mm3 (4.0-10.0)
[2022-01-30 17:18] LABS: CALCIUM 9.2 mg/dL (8.5-10.1)
[2022-01-30 17:19] LABS: BLOOD UREA NITROGEN 14.1 mg/dL (7-18)
[2022-01-31 19:06] LABS: SARS-CoV-2 NAA Not Detected (Not Detected)
== END 2022-01-30 19:06 | disposition home or self-care (01) ==
LOC: JER 15:37
PROC: 3E033GC Introduction of Other Therapeutic Substance into Peripheral Vein, Percutaneous Approach (ICD-10-PCS; principal; 2022-01-30)
DX: J09.X2 Influenza due to identified novel influenza A virus with other respiratory manifestations (principal)
CPT/HCPCS: 36415; 80048; 85025; 87804; 87807; 96374; 99284-25; C9803-CS; U0003; U0005

== ENCOUNTER 2022-08-02 21:19 | Emergency (ER) | payer SELFPAY ==
[2022-08-02 21:52] VITALS: BP 146/90; PULSE 94; RESP 18; TEMP 98.9; BMI 58.5
[2022-08-02] MEDS ORDERED: ACETAMINOPHEN 1000 MG/100 ML BAG IVPB ONE (22:51)
[2022-08-02] MEDS ORDERED: ONDANSETRON 4 MG/2 ML VIAL IVPUSH ONE (22:51)
[2022-08-02] MEDS ORDERED: FAMOTIDINE 20 MG/50 ML IVPB 20 MG/50 ML MG IVPB ONE ×2 (22:51→23:09)
[2022-08-02] MEDS ORDERED: MAG HYDROX/AL HYDROX/SIMETH -MYLANTA- ORAL SUSPENSION PO ONE (22:51)
[2022-08-02] MEDS ORDERED: SODIUM CHLORIDE 0.9% 500 ML INFUS.BAG IV ONE (22:51)
[2022-08-02] MEDS ORDERED: ACETAMINOPHEN INJECTION 100 ML IVPB ONE (23:08)
[2022-08-02] MEDS ORDERED: ONDANSETRON 4 MG/2 ML VIAL ONE (23:09)
[2022-08-02] MEDS ORDERED: MAG HYDROX/AL HYDROX/SIMETH 30 ML UNIT-DOSE CUP ONE (23:09)
[2022-08-02 23:39] LABS: BASO % 0.4 % (0-2.0); EOS % 0.5 % (0-4.5); HEMATOCRIT 44.5 % (35.4-49); HEMOGLOBIN 14.6 GM/dL (11.7-16.9); LYMPH % 16.2 % (8-40); MCH 27.6 pg (25.7-33.7); MCHC 32.9 g/dl (32.0-35.9); MEAN CELL VOLUME 83.9 fl (80-96); MONO % 8.3 % (3.8-10.2); NEUT % 74.6 % (42.8-82.8); PLATELET COUNT 239 10^3/uL (134-434); RDW 15.2 % (11.9-15.9); WHITE BLOOD COUNT 9.4 K/mm3 (4.0-10.0)
[2022-08-02 23:59] LABS: CALCIUM 7.9 mg/dL (8.5-10.1)
[2022-08-03] LABS: BLOOD UREA NITROGEN 15.9 mg/dL (7-18); MAGNESIUM 2.1 mg/dL (1.8-2.4)
[2022-08-03 00:03] LABS: CREATININE 0.9 mg/dL (0.55-1.3)
[2022-08-03 00:04] LABS: BILIRUBIN,TOTAL 0.6 mg/dL (0.2-1); TOT PROT 6.5 g/dl (6.4-8.2)
[2022-08-03 01:29] LABS: URINE APPEARANCE CLEAR; URINE BILIRUBIN NEGATIVE (NEGATIVE); URINE COLOR YELLOW; URINE GLUCOSE (UA) NEGATIVE (NEGATIVE); URINE KETONE NEGATIVE (NEGATIVE); URINE LEUK ESTERASE NEGATIVE (NEGATIVE); URINE NITRITE NEGATIVE (NEGATIVE); URINE PROTEIN TRACE (NEGATIVE); URINE UROBILINOGEN 0.2 mg/dL (0.2-1.0)
== END 2022-08-03 02:17 | disposition home or self-care (01) ==
LOC: JER 21:19
PROC: 3E033NZ Introduction of Analgesics, Hypnotics, Sedatives into Peripheral Vein, Percutaneous Approach (ICD-10-PCS; principal; 2022-08-02)
PROC: 3E033GC Introduction of Other Therapeutic Substance into Peripheral Vein, Percutaneous Approach (ICD-10-PCS; 2022-08-02)
PROC: 3E033GC Introduction of Other Therapeutic Substance into Peripheral Vein, Percutaneous Approach (ICD-10-PCS; 2022-08-02)
DX: R10.9 Unspecified abdominal pain (principal)
CPT/HCPCS: 0241U-QW; 36415; 74177-TC; 80053; 81003; 83690; 83735; 85025; 93005; 93010; 99285-25

== ENCOUNTER 2022-08-31 08:52 | Emergency (ER) | payer OTHER ==
[2022-08-31 08:56] VITALS: BP 150/77; PULSE 102; RESP 18; TEMP 97.4; BMI 58.5
== END 2022-08-31 12:59 | disposition home or self-care (01) ==
LOC: JER 08:52
DX: J06.9 Acute upper respiratory infection, unspecified (principal)
CPT/HCPCS: 0241U-QW; 99283-25

== ENCOUNTER 2022-09-23 19:05 | Inpatient (IN) | payer OTHER ==
[2022-09-23] MEDS ORDERED: ASPIRIN 81 MG CHEWABLE TABLETS PO ONE (21:06)
[2022-09-23] MEDS ORDERED: ASPIRIN 81 MG CHEWABLE TABLETS ONE (21:49)
[2022-09-23 21:59] LABS: BASO % 0.9 % (0-2.0); EOS % 0.9 % (0-4.5); HEMATOCRIT 44.6 % (35.4-49); HEMOGLOBIN 14.2 GM/dL (11.7-16.9); LYMPH % 16.9 % (8-40); MCH 26.3 pg (25.7-33.7); MCHC 31.8 g/dl (32.0-35.9); MEAN CELL VOLUME 82.7 fl (80-96); MEAN PLT VOLUME 8.3 fl (7.5-11.1); NEUT % 72.3 % (42.8-82.8); PLATELET COUNT 267 10^3/uL (134-434); RDW 16.2 % (11.9-15.9); WHITE BLOOD COUNT 13.8 K/mm3 (4.0-10.0)
[2022-09-23 22:05] LABS: INR 1.09 (0.83-1.09); PROTHROMBIN TIME (PATIENT) 12.6 SEC (9.7-13.0)
[2022-09-23 22:08] LABS: ACTIVATED PTT 29.5 SECONDS (25.2-36.5)
[2022-09-23] MEDS ORDERED: ALBUTEROL SO4 2.5/IPRATROPIUM 0.5 INH SOL 3 ML VIAL.NEB. NEB ONE ×2 (22:12→22:22)
[2022-09-23] MEDS ORDERED: methylPREDNISolone NA SUCC 125 MG/2 ML VIAL IVPUSH ONE (22:17)
[2022-09-23] MEDS ORDERED: methylPREDNISolone NA SUCC 125 MG/2 ML VIAL ONE (22:22)
[2022-09-23 22:24] LABS: ALBUMIN 3.4 g/dl (3.4-5.0); BLOOD UREA NITROGEN 16.4 mg/dL (7-18); MAGNESIUM 2.3 mg/dL (1.8-2.4)
[2022-09-23 22:28] LABS: BILIRUBIN,TOTAL 0.4 mg/dL (0.2-1); TOT PROT 7.1 g/dl (6.4-8.2)
[2022-09-23 22:32] LABS: N-TERMINAL BNP 25.6 pg/ml (5-125)
[2022-09-23] MEDS ORDERED: MAGNESIUM SULF 50% (8.12 MEQ/2 ML-1 GM VIAL) IVPB ONE (23:17)
[2022-09-23] MEDS ORDERED: MAGNESIUM SULFATE IN WATER 2 GM/50 ML IVPB IVPB ONE (23:37)
[2022-09-24 02:21] LABS: PH,URINE 6.5 (5.0-8.0); URINE APPEARANCE CLEAR; URINE BILIRUBIN NEGATIVE (NEGATIVE); URINE COLOR YELLOW; URINE GLUCOSE (UA) NEGATIVE (NEGATIVE); URINE KETONE TRACE (NEGATIVE); URINE LEUK ESTERASE NEGATIVE (NEGATIVE); URINE NITRITE NEGATIVE (NEGATIVE); URINE PROTEIN NEGATIVE (NEGATIVE); URINE UROBILINOGEN 0.2 mg/dL (0.2-1.0)
[2022-09-24] MEDS ORDERED: CEFTRIAXONE 1 GM in DEXTROSE 5%-WATER - 100 ML IVPB ONE (04:00)
[2022-09-24] MEDS ORDERED: AZITHROMYCIN IVPB 500 MG in DEXTROSE 5%-WATER - 250 ML IVPB ONE (04:01)
[2022-09-24] MEDS ORDERED: cefTRIAXone SODIUM 1 GM VIAL ONE (15:36)
[2022-09-24] MEDS: CEFTRIAXONE 1 GM in DEXTROSE 5%-WATER - 50 ML IVPB SCH (15:43)
[2022-09-24] MEDS: methylPREDNISolone NA SUCC 40 MG/1 ML VIAL IVPUSH SCH (17:01)
[2022-09-24] MEDS ORDERED: HEPARIN NA (PORCINE) 5,000 UNITS/ML 1ML VIAL SQ SCH (22:00)
[2022-09-24] MEDS ORDERED: APIXABAN 5 MG TABLET ONE (22:48)
[2022-09-24] MEDS ORDERED: ATORVASTATIN CA 80 MG TABLET (FP) ONE (22:48)
[2022-09-24] MEDS: APIXABAN 5 MG TABLET PO SCH (23:00)
[2022-09-24] MEDS: ATORVASTATIN CA 80 MG TABLET (FP) PO SCH (23:00)
[2022-09-25 01:33] VITALS: BMI 63.3
[2022-09-25] MEDS: methylPREDNISolone NA SUCC 40 MG/1 ML VIAL IVPUSH SCH ×3 (02:20→17:42)
[2022-09-25 11:41] LABS: BASO % 0.1 % (0-2.0); HEMATOCRIT 46.1 % (35.4-49); HEMOGLOBIN 14.8 GM/dL (11.7-16.9); LYMPH % 10.6 % (8-40); MCH 26.5 pg (25.7-33.7); MEAN CELL VOLUME 82.8 fl (80-96); MEAN PLT VOLUME 8.9 fl (7.5-11.1); MONO % 5.6 % (3.8-10.2); NEUT % 83.7 % (42.8-82.8); PLATELET COUNT 295 10^3/uL (134-434); RBC 5.57 M/mm3 (4.00-5.60); RDW 15.9 % (11.9-15.9); WHITE BLOOD COUNT 14.1 K/mm3 (4.0-10.0)
[2022-09-25] MEDS: ASPIRIN 81 MG CHEWABLE TABLETS PO SCH (11:58)
[2022-09-25] MEDS: APIXABAN 5 MG TABLET PO SCH ×2 (11:58→21:46)
[2022-09-25] MEDS: CEFTRIAXONE 1 GM in DEXTROSE 5%-WATER - 50 ML IVPB SCH (11:59)
[2022-09-25] MEDS ORDERED: FLU VACC QS2022-23(6MOS UP)/PF 60 MCG/0.5 ML SYRINGE IM ONE (12:00)
[2022-09-25] MEDS ORDERED: PNEUMOC 20-VAL CONJ-DIP CRM/PF 0.5 ML SYRINGE IM ONE (12:00)
[2022-09-25 12:27] LABS: ALBUMIN 3.3 g/dl (3.4-5.0); BLOOD UREA NITROGEN 15.9 mg/dL (7-18); CALCIUM 9.3 mg/dL (8.5-10.1)
[2022-09-25 12:28] LABS: TOT PROT 7.2 g/dl (6.4-8.2)
[2022-09-25 12:29] LABS: BILIRUBIN,TOTAL 0.3 mg/dL (0.2-1)
[2022-09-25] MEDS: AZITHROMYCIN IVPB 250 MG in DEXTROSE 5%-WATER - 250 ML IVPB SCH (12:29)
[2022-09-25 12:30] LABS: CREATININE 0.8 mg/dL (0.55-1.3)
[2022-09-25] MEDS: ATORVASTATIN CA 80 MG TABLET (FP) PO SCH (21:46)
[2022-09-26] MEDS: methylPREDNISolone NA SUCC 40 MG/1 ML VIAL IVPUSH SCH ×3 (03:04→17:49)
[2022-09-26 09:08] LABS: BASO % 0.2 % (0-2.0); HEMATOCRIT 48.3 % (35.4-49); HEMOGLOBIN 15.6 GM/dL (11.7-16.9); LYMPH % 9.6 % (8-40); MCH 26.7 pg (25.7-33.7); MCHC 32.4 g/dl (32.0-35.9); MEAN CELL VOLUME 82.3 fl (80-96); MEAN PLT VOLUME 8.9 fl (7.5-11.1); MONO % 3.1 % (3.8-10.2); NEUT % 87.1 % (42.8-82.8); PLATELET COUNT 306 10^3/uL (134-434); RBC 5.87 M/mm3 (4.00-5.60); RDW 16.1 % (11.9-15.9)
[2022-09-26 09:36] LABS: CALCIUM 9.5 mg/dL (8.5-10.1)
[2022-09-26 09:37] LABS: ALBUMIN 3.5 g/dl (3.4-5.0); BLOOD UREA NITROGEN 14.7 mg/dL (7-18)
[2022-09-26 09:40] LABS: BILIRUBIN,TOTAL 0.4 mg/dL (0.2-1); CREATININE 0.9 mg/dL (0.55-1.3)
[2022-09-26 09:41] LABS: TOT PROT 7.5 g/dl (6.4-8.2)
[2022-09-26] MEDS: CEFTRIAXONE 1 GM in DEXTROSE 5%-WATER - 50 ML IVPB SCH (09:49)
[2022-09-26] MEDS: HEPARIN NA (PORCINE) 5,000 UNITS/ML 1ML VIAL SQ SCH ×2 (09:50→23:22)
[2022-09-26] MEDS: ASPIRIN 81 MG CHEWABLE TABLETS PO SCH (09:51)
[2022-09-26] MEDS: AZITHROMYCIN IVPB 250 MG in DEXTROSE 5%-WATER - 250 ML IVPB SCH (09:56)
[2022-09-26] MEDS: ALBUTEROL SO4 2.5/IPRATROPIUM 0.5 INH SOL 3 ML VIAL.NEB. NEB PRN ×2 (10:40→15:40)
[2022-09-27] MEDS: methylPREDNISolone NA SUCC 40 MG/1 ML VIAL IVPUSH SCH ×2 (01:40→10:10)
[2022-09-27] MEDS: CEFTRIAXONE 1 GM in DEXTROSE 5%-WATER - 50 ML IVPB SCH (10:09)
[2022-09-27] MEDS: AZITHROMYCIN IVPB 250 MG in DEXTROSE 5%-WATER - 250 ML IVPB SCH (10:09)
[2022-09-27] MEDS: ASPIRIN 81 MG CHEWABLE TABLETS PO SCH (10:10)
[2022-09-27 10:11] VITALS: RESP 18
[2022-09-27] MEDS: HEPARIN NA (PORCINE) 5,000 UNITS/ML 1ML VIAL SQ SCH ×2 (10:11→22:55)
[2022-09-27] MEDS: predniSONE 20 MG TABLET (UD) PO SCH (15:31)
[2022-09-27] MEDS: VALSARTAN 80 MG TABLET PO SCH (15:31)
[2022-09-28 10:02] LABS: HEMATOCRIT 51.2 % (35.4-49); HEMOGLOBIN 16.6 GM/dL (11.7-16.9); MCH 26.8 pg (25.7-33.7); MCHC 32.4 g/dl (32.0-35.9); MEAN CELL VOLUME 82.7 fl (80-96); MEAN PLT VOLUME 8.9 fl (7.5-11.1); PLATELET COUNT 330 10^3/uL (134-434); RBC 6.19 M/mm3 (4.00-5.60); RDW 16.2 % (11.9-15.9); WHITE BLOOD COUNT 15.5 K/mm3 (4.0-10.0)
[2022-09-28] MEDS: AZITHROMYCIN IVPB 250 MG in DEXTROSE 5%-WATER - 250 ML IVPB SCH (10:19)
[2022-09-28 10:20] LABS: CALCIUM 9.7 mg/dL (8.5-10.1)
[2022-09-28 10:21] LABS: BLOOD UREA NITROGEN 17.4 mg/dL (7-18)
[2022-09-28 10:22] LABS: ALBUMIN 3.4 g/dl (3.4-5.0)
[2022-09-28 10:25] LABS: BILIRUBIN,TOTAL 0.4 mg/dL (0.2-1)
[2022-09-28 10:26] LABS: TOT PROT 7.1 g/dl (6.4-8.2)
[2022-09-28] MEDS: CEFTRIAXONE 1 GM in DEXTROSE 5%-WATER - 50 ML IVPB SCH (10:44)
[2022-09-28] MEDS: ASPIRIN 81 MG CHEWABLE TABLETS PO SCH (10:44)
[2022-09-28] MEDS: VALSARTAN 80 MG TABLET PO SCH (10:44)
[2022-09-28] MEDS: HEPARIN NA (PORCINE) 5,000 UNITS/ML 1ML VIAL SQ SCH (10:44)
[2022-09-28] MEDS: predniSONE 20 MG TABLET (UD) PO SCH (10:44)
[2022-09-28 11:00] LABS: ANISOCYTOSIS 0; MACROCYTOSIS 0
[2022-09-28 15:23] VITALS: BP 151/89; PULSE 108; TEMP 98.3
== END 2022-09-28 16:45 | disposition home or self-care (01) | DRG 141 ==
LOC: JER 19:05 → JERBED 09-24 00:26 → J7W 09-25 00:53
PROVIDERS: ADMIT Internal Medicine; ATTEND Internal Medicine
DX: J45.901 Unspecified asthma with (acute) exacerbation (principal); Z68.44 Body mass index [BMI] 60.0-69.9, adult; I10 Essential (primary) hypertension; E66.01 Morbid (severe) obesity due to excess calories; G47.33 Obstructive sleep apnea (adult) (pediatric); K76.0 Fatty (change of) liver, not elsewhere classified
CPT/HCPCS: 0241U-QW; 36415; 71045-TC-FY; 80053; 81003; 82550; 82962; 83036; 83735; 83880; 84484; 85025; 85379; 85610; 85730; 90677; 93005; 93010; 94640; 99285-25; G0008; J1644; Q2036

== ENCOUNTER 2023-07-26 13:31 | Inpatient (IN) | payer OTHER ==
[2023-07-26] MEDS ORDERED: ALBUTEROL SO4 0.083% IH SOL 2.5 MG/3 ML VIAL.NEB. NEB ONE ×3 (17:18→21:50)
[2023-07-26] MEDS ORDERED: ALBUTEROL SO4 2.5/IPRATROPIUM 0.5 INH SOL 3 ML VIAL.NEB. NEB ONE ×4 (17:18→19:06)
[2023-07-26] MEDS ORDERED: predniSONE 20 MG TABLET (UD) PO ONE (17:19)
[2023-07-26] MEDS ORDERED: predniSONE 20 MG TABLET (UD) ONE (17:39)
[2023-07-26 18:08] LABS: BASO % 0.5 % (0-2.0); EOS % 3.3 % (0-4.5); HEMATOCRIT 43.1 % (35.4-49); HEMOGLOBIN 13.9 GM/dL (11.7-16.9); LYMPH % 21.4 % (8-40); MCH 25.9 pg (25.7-33.7); MCHC 32.3 g/dl (32.0-35.9); MEAN CELL VOLUME 80.1 fl (80-96); NEUT % 65.8 % (42.8-82.8); PLATELET COUNT 301 10^3/uL (134-434); RBC 5.38 M/mm3 (4.00-5.60); RDW 16.8 % (11.9-15.9); WHITE BLOOD COUNT 11.3 K/mm3 (4.0-10.0)
[2023-07-26] MEDS ORDERED: ALBUTEROL SO4 2.5/IPRATROPIUM 0.5 INH SOL 3 ML VIAL.NEB. NEB STA (18:25)
[2023-07-26 18:26] LABS: POTASSIUM 4.3 mmol/L (3.5-5.1)
[2023-07-26 18:28] LABS: CALCIUM 8.6 mg/dL (8.5-10.1)
[2023-07-26 18:29] LABS: ALBUMIN 3.2 g/dl (3.4-5.0); BLOOD UREA NITROGEN 11.1 mg/dL (7-18)
[2023-07-26 18:32] LABS: CREATININE 0.9 mg/dL (0.55-1.3)
[2023-07-26 18:33] LABS: BILIRUBIN,TOTAL 0.1 mg/dL (0.2-1)
[2023-07-26 18:34] LABS: TOT PROT 7.4 g/dl (6.4-8.2)
[2023-07-26] MEDS ORDERED: ACETAMINOPHEN 325 MG TABLET (FP) ONE (20:18)
[2023-07-26] MEDS ORDERED: ACETAMINOPHEN 325 MG TABLET (FP) PO ONE (20:26)
[2023-07-26] MEDS: ALBUTEROL SO4 0.083% IH SOL 2.5 MG/3 ML VIAL.NEB. NEB SCH (21:42)
[2023-07-27] MEDS ORDERED: methylPREDNISolone NA SUCC 40 MG/1 ML VIAL ONE (02:42)
[2023-07-27] MEDS: methylPREDNISolone NA SUCC 40 MG/1 ML VIAL IVPUSH SCH ×3 (02:43→15:45)
[2023-07-27 07:22] LABS: POTASSIUM 4.2 mmol/L (3.5-5.1)
[2023-07-27 07:26] LABS: CALCIUM 8.4 mg/dL (8.5-10.1)
[2023-07-27 07:27] LABS: BLOOD UREA NITROGEN 12.2 mg/dL (7-18)
[2023-07-27 07:30] LABS: CREATININE 1.1 mg/dL (0.55-1.3)
[2023-07-27 08:13] LABS: HEMATOCRIT 43.2 % (35.4-49); HEMOGLOBIN 13.9 GM/dL (11.7-16.9); MCHC 32.2 g/dl (32.0-35.9); MEAN CELL VOLUME 80.9 fl (80-96); MEAN PLT VOLUME 8.6 fl (7.5-11.1); PLATELET COUNT 269 10^3/uL (134-434); RBC 5.34 M/mm3 (4.00-5.60); WHITE BLOOD COUNT 11.3 K/mm3 (4.0-10.0)
[2023-07-27] MEDS ORDERED: ENOXAPARIN NA (PORCINE) 40 MG/0.4 ML DISP.SYRIN SQ SCH (10:00)
[2023-07-27] MEDS: ALBUTEROL SO4 0.083% IH SOL 2.5 MG/3 ML VIAL.NEB. NEB SCH ×4 (10:53→20:23)
[2023-07-27] MEDS: VALSARTAN 80 MG TABLET PO SCH (10:53)
[2023-07-27 17:48] VITALS: BMI 71.0
[2023-07-27 18:44] LABS: N-TERMINAL BNP 31.8 pg/ml (5-125)
[2023-07-27] MEDS ORDERED: FLU VACCINE (FLULAVAL) PF 60 MCG/0.5 ML SYRINGE 2023-2024 IM ONE (18:45)
[2023-07-27] MEDS ORDERED: ALBUTEROL SO4 0.083% IH SOL 2.5 MG/3 ML VIAL.NEB. NEB PRN (18:50)
[2023-07-27] MEDS: methylPREDNISolone NA SUCC 125 MG/2 ML VIAL IVPUSH SCH (21:34)
[2023-07-27] MEDS: MONTELUKAST NA 10 MG TABLET PO SCH (21:36)
[2023-07-27] MEDS: ENOXAPARIN NA (PORCINE) 40 MG/0.4 ML DISP.SYRIN SQ SCH (21:36)
[2023-07-28] MEDS: guaiFENesin/D-METHORPHAN HB 10 ML UNIT-DOSE CUPS PO PRN ×2 (02:54→21:25)
[2023-07-28] MEDS: methylPREDNISolone NA SUCC 125 MG/2 ML VIAL IVPUSH SCH ×4 (03:29→21:24)
[2023-07-28] MEDS: ALBUTEROL SO4 0.083% IH SOL 2.5 MG/3 ML VIAL.NEB. NEB SCH ×4 (07:55→20:14)
[2023-07-28 08:25] LABS: CHOLESTEROL 216 mg/dL (50-200)
[2023-07-28 08:26] LABS: LDL CHOLESTEROL (ONLY SJRH) 159 mg/dL (5-100)
[2023-07-28 08:28] LABS: HDL CHOLESTEROL 57 mg/dL (40-60)
[2023-07-28] MEDS: ENOXAPARIN NA (PORCINE) 40 MG/0.4 ML DISP.SYRIN SQ SCH ×2 (09:04→21:25)
[2023-07-28] MEDS: VALSARTAN 80 MG TABLET PO SCH (09:04)
[2023-07-28] MEDS: MONTELUKAST NA 10 MG TABLET PO SCH (21:25)
[2023-07-28] MEDS: BUDESONIDE/FORMETEROL FUMARATE 160/4.5 mcg INHALER IH SCH (21:26)
[2023-07-29] MEDS: methylPREDNISolone NA SUCC 125 MG/2 ML VIAL IVPUSH SCH ×3 (03:30→17:52)
[2023-07-29] MEDS: ALBUTEROL SO4 0.083% IH SOL 2.5 MG/3 ML VIAL.NEB. NEB SCH ×4 (07:30→20:00)
[2023-07-29 08:35] LABS: BASO % 0.1 % (0-2.0); HEMATOCRIT 44.2 % (35.4-49); HEMOGLOBIN 14.5 GM/dL (11.7-16.9); LYMPH % 7.7 % (8-40); MCH 26.4 pg (25.7-33.7); MCHC 32.7 g/dl (32.0-35.9); MEAN CELL VOLUME 80.7 fl (80-96); MEAN PLT VOLUME 8.8 fl (7.5-11.1); MONO % 4.1 % (3.8-10.2); NEUT % 88.1 % (42.8-82.8); PLATELET COUNT 304 10^3/uL (134-434); RBC 5.48 M/mm3 (4.00-5.60); RDW 16.5 % (11.9-15.9); WHITE BLOOD COUNT 14.9 K/mm3 (4.0-10.0)
[2023-07-29 08:52] LABS: CALCIUM 9.1 mg/dL (8.5-10.1)
[2023-07-29 08:54] LABS: ALBUMIN 3.3 g/dl (3.4-5.0)
[2023-07-29 08:56] LABS: CREATININE 0.8 mg/dL (0.55-1.3)
[2023-07-29 08:57] LABS: BILIRUBIN,TOTAL 0.3 mg/dL (0.2-1); TOT PROT 7.3 g/dl (6.4-8.2)
[2023-07-29] MEDS: ENOXAPARIN NA (PORCINE) 40 MG/0.4 ML DISP.SYRIN SQ SCH ×2 (09:02→21:34)
[2023-07-29] MEDS: VALSARTAN 80 MG TABLET PO SCH (09:02)
[2023-07-29] MEDS: BUDESONIDE/FORMETEROL FUMARATE 160/4.5 mcg INHALER IH SCH ×2 (09:03→21:34)
[2023-07-29] MEDS: MONTELUKAST NA 10 MG TABLET PO SCH (21:33)
[2023-07-29] MEDS ORDERED: ATORVASTATIN CA 40 MG TABLET (FP) PO SCH (22:00)
[2023-07-30] MEDS: methylPREDNISolone NA SUCC 125 MG/2 ML VIAL IVPUSH SCH ×2 (03:08→09:16)
[2023-07-30] MEDS: ALBUTEROL SO4 0.083% IH SOL 2.5 MG/3 ML VIAL.NEB. NEB SCH ×2 (07:46→11:20)
[2023-07-30 07:53] VITALS: BP 128/62; PULSE 87; RESP 20; TEMP 97.7
[2023-07-30] MEDS: VALSARTAN 80 MG TABLET PO SCH (09:16)
[2023-07-30] MEDS: ENOXAPARIN NA (PORCINE) 40 MG/0.4 ML DISP.SYRIN SQ SCH (09:16)
[2023-07-30] MEDS: BUDESONIDE/FORMETEROL FUMARATE 160/4.5 mcg INHALER IH SCH (09:55)
[2023-07-31 18:24] LABS: N-TERMINAL BNP 349.4 pg/ml (5-125)
== END 2023-07-30 14:36 | disposition home or self-care (01) | DRG 141 ==
LOC: JER 13:31 → JERBED 20:26 → OBSVTOIN 21:31 → J4W 07-27 16:47
PROVIDERS: ADMIT Internal Medicine; ATTEND Internal Medicine
DX: J45.901 Unspecified asthma with (acute) exacerbation (principal); Z68.44 Body mass index [BMI] 60.0-69.9, adult; I10 Essential (primary) hypertension; E11.9 Type 2 diabetes mellitus without complications; E66.01 Morbid (severe) obesity due to excess calories; G47.30 Sleep apnea, unspecified; R09.02 Hypoxemia
CPT/HCPCS: 0241U-QW; 36415; 71046-TC-FY; 80048; 80053; 80061; 83036; 83880; 84443; 84484; 85025; 85027; 85379; 90686; 93005; 93010; 93306-TC; 93970-TC; 94640; 99285-25; G0008; G0378

== ENCOUNTER 2024-09-09 21:15 | Emergency (ER) | payer OTHER ==
[2024-09-09 21:31] VITALS: TEMP 98.5; BMI 48.6
[2024-09-09] MEDS ORDERED: ACETAMINOPHEN 325 MG TABLET (FP) ONE (22:14)
[2024-09-09] MEDS ORDERED: ALBUTEROL SO4 2.5/IPRATROPIUM 0.5 INH SOL 3 ML VIAL.NEB. NEB ONE ×2 (22:14→22:49)
[2024-09-09] MEDS: ACETAMINOPHEN 500 MG TABLET (FP) PO ONE (22:29)
[2024-09-09] MEDS: ALBUTEROL SO4 2.5/IPRATROPIUM 0.5 INH SOL 3 ML VIAL.NEB. NEB ONE (22:29)
[2024-09-09 22:44] LABS: BASO % 0.8 % (0-2.0); EOS % 1.7 % (0-4.5); HEMATOCRIT 41.3 % (35.4-49); HEMOGLOBIN 14.3 GM/dL (11.7-16.9); LYMPH % 29.4 % (8-40); MCHC 34.6 g/dl (32.0-35.9); MEAN PLT VOLUME 8.6 fl (7.5-11.1); MONO % 16.5 % (3.8-10.2); NEUT % 51.6 % (42.8-82.8); PLATELET COUNT 263 10^3/uL (134-434); RBC 5.09 M/mm3 (4.00-5.60); RDW 15.3 % (11.9-15.9); WHITE BLOOD COUNT 7.2 K/mm3 (4.0-10.0)
[2024-09-09 22:55] LABS: ALBUMIN 3.4 g/dl (3.4-5.0); BLOOD UREA NITROGEN 11.3 mg/dL (7-18); CALCIUM 8.3 mg/dL (8.5-10.1)
[2024-09-09 22:58] LABS: CREATININE 0.8 mg/dL (0.55-1.3)
[2024-09-09 23:01] LABS: BILIRUBIN,TOTAL 0.2 mg/dL (0.2-1); TOT PROT 6.9 g/dl (6.4-8.2)
[2024-09-09] MEDS ORDERED: predniSONE 20 MG TABLET (UD) ONE (23:08)
[2024-09-09] MEDS: predniSONE 20 MG TABLET (UD) PO ONE (23:12)
[2024-09-10 01:09] VITALS: BP 126/78; PULSE 85; RESP 20
== END 2024-09-10 01:09 | disposition home or self-care (01) ==
LOC: JER 21:15
PROC: 3E0F7GC Introduction of Other Therapeutic Substance into Respiratory Tract, Via Natural or Artificial Opening (ICD-10-PCS; principal; 2024-09-09)
DX: J45.901 Unspecified asthma with (acute) exacerbation (principal); J10.1 Influenza due to other identified influenza virus with other respiratory manifestations; R06.02 Shortness of breath; R05.9 Cough, unspecified; R50.9 Fever, unspecified; R07.9 Chest pain, unspecified; R09.81 Nasal congestion; Z20.822 Contact with and (suspected) exposure to COVID-19
CPT/HCPCS: 0241U-QW; 36415; 71046-TC-FY; 80053; 84484; 85025; 93005; 93010; 99285-25